=== PATIENT | male | born 1980 | race Caucasian/White ===

== ENCOUNTER 2016-11-25 19:43 | Inpatient (IN) | payer MEDICARE, MEDICAID ==
[2016-11-25 20:29] VITALS: BMI 13.8
[2016-11-25] MEDS ORDERED: Ondansetron ODT 4 MG TAB SL PRN (20:46)
[2016-11-25] MEDS ORDERED: Acetaminophen 325 MG TAB PO PRN ×2 (20:46→22:12)
[2016-11-25] MEDS ORDERED: Ondansetron HCl/PF 4 MG/2 ML Vial IVP PRN (20:46)
[2016-11-25] MEDS ORDERED: Meropenem 1 GM in Sodium Chloride 0.9% 100 ML IVPB SCH (22:00)
[2016-11-25] MEDS ORDERED: Ibuprofen 200 MG TAB PO PRN (22:12)
[2016-11-25] MEDS ORDERED: traMADol HCl 50 MG TAB PO PRN (22:12)
[2016-11-25] MEDS ORDERED: Guaifenesin DM 100-10/5 ML UDCUP PO PRN (22:12)
[2016-11-25] MEDS ORDERED: Mag-Al 1200 mg/1200 mg/30 ML UDCUP PO PRN (22:12)
[2016-11-25] MEDS ORDERED: Senokot 8.6 MG TAB PO PRN (22:12)
[2016-11-25] MEDS: HYDROcodone/Acetaminophen 7.5/325 mg Tablet PO PRN (22:41)
[2016-11-25] MEDS ORDERED: VANCOMYCIN IVPB PRN (22:48)
[2016-11-25] MEDS ORDERED: Pregabalin 75 MG CAP PO SCH (23:00)
[2016-11-25] MEDS ORDERED: Famotidine 20 MG TAB PO SCH (23:00)
[2016-11-25] MEDS ORDERED: Oxybutynin Chloride 5 MG TAB PO SCH (23:00)
[2016-11-25 23:44] LABS: Vancomycin, Trough 12.9 ug/mL
[2016-11-26] MEDS: Vancomycin HCl 750 MG in Sodium Chloride 0.9% 250 ML 250 ML IVPB SCH ×3 (04:43→21:23)
[2016-11-26] MEDS: diphenhydrAMINE HCl 25 MG CAP PO PRN ×3 (04:43→21:23)
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
[2016-11-26 05:33] LABS: #Eosinphils 0.2 thou/uL (0.0-0.7); #Lymphocytes 2.6 thou/uL (1.20-3.40); #Monocytes 0.6 thou/uL (0.11-0.59); #Neutrophils 2.4 thou/uL (1.40-6.50); %Basophils 0.2 % (0.0-1.0); %Eosinophils 3.6 % (0.0-10.0); %Lymphocytes 45.2 % (21.0-51.0); %Monocytes 9.9 % (0.0-10.0); Hematocrit 41.7 % (42.0-52.0); Mean Platelet Volume 8.3 fL (7.4-10.4); Red Blood Cell (RBC) Count 4.42 mill/uL (4.70-6.10); White Blood Cell (WBC) Count 5.8 thou/uL (4.8-10.8)
[2016-11-26 05:56] LABS: Anion Gap 13 mmol/L (10-20); BUN (Urea Nitrogen) 16 mg/dL (8.9-20.6); Calc. Creatinine Clearance 115 mL/min (70-130); Calcium 9.4 mg/dL (7.8-10.44); Carbon Dioxide 20 mmol/L (22-29); Chloride 108 mmol/L (98-107); Estimated GFR-MDRD Greater than 90
[2016-11-26] MEDS: Meropenem 1 GM in Sodium Chloride 0.9% 100 ML IVPB SCH ×3 (06:40→21:26)
[2016-11-26] MEDS ORDERED: Milk Of Magnesia 30 ML UDCUP PO PRN (07:14)
[2016-11-26] MEDS ORDERED: Loperamide HCl 2 MG CAP PO PRN (07:14)
[2016-11-26] MEDS ORDERED: Ondansetron HCl/PF 4 MG/2 ML Vial IVP PRN (07:14)
[2016-11-26] MEDS ORDERED: Artificial Tears 18 DROP/0.9 ML EA EYE PRN (07:14)
[2016-11-26] MEDS ORDERED: Diabetic Tussin 200 MG/10 ML UDCUP PO PRN (07:14)
[2016-11-26] MEDS ORDERED: Sodium Chloride 0.65% Nasal 44 ML BOT EA NARE PRN (07:14)
[2016-11-26] MEDS ORDERED: Loratadine 10 MG TAB PO PRN (07:14)
[2016-11-26] MEDS ORDERED: Ondansetron ODT 4 MG TAB PO PRN (07:14)
[2016-11-26] MEDS ORDERED: Eucerin (Mineral Oil/Petrolatum,White) 30 gm Jar TOP PRN (07:14)
[2016-11-26] MEDS ORDERED: Zolpidem Tartrate 5 MG TAB PO PRN (07:14)
[2016-11-26] MEDS: Pregabalin 75 MG CAP PO SCH ×2 (08:59→20:12)
[2016-11-26] MEDS: Famotidine 20 MG TAB PO SCH ×2 (09:00→20:12)
[2016-11-26] MEDS ORDERED: Vancomycin HCl 1 GM in Premix Bag 1 BAG IVPB SCH (09:00)
[2016-11-26] MEDS: HYDROcodone/Acetaminophen 7.5/325 mg Tablet PO PRN ×2 (09:00→18:51)
[2016-11-26] MEDS: Oxybutynin Chloride 5 MG TAB PO SCH ×2 (09:00→20:13)
--- NOTE | 2016-11-26 10:04 | PDOC.PN ---
- Subjective Encounter Start Date: 11/26/16 Encounter Start Time: 08:40 -: old records requested/rev Patient seen and examined. No new complaints. No overnight events - Objective Resuscitation Status: Resuscitation Status FULL:Full Resuscitation MAR Reviewed: Yes Vital Signs & Weight: Vital Signs (12 hours) Temp Pulse Resp BP BP Pulse Ox 11/26/16 08:00 97.5 F L 44 L 18 130/79 97 11/26/16 04:48 97.7 F 49 L 20 105/70 96 11/26/16 00:00 97.8 F 52 L 20 111/71 97 Weight Weight 94 lb 1 oz I&O: 11/25/16 11/26/16 11/27/16 06:59 06:59 06:59 Intake Total 1410 Output Total 450 Balance 960 Result Diagrams: 11/26/16 04:24 11/26/16 04:24 Phys Exam - Physical Examination Constitutional: NAD HEENT: PERRLA, moist MMs, sclera anicteric Neck: no JVD, supple Respiratory: no wheezing, no rales, no rhonchi Cardiovascular: RRR, no significant murmur, no rub Gastrointestinal: soft, non-tender, no distention, positive bowel sounds suprapubic catheter+ Musculoskeletal: no edema, pulses present qudriparesis Psychiatric: normal affect, A&O x 3 Skin: no rash, normal turgor Dx/Plan (1) C5-C7 incomplete quadriplegia Code(s): G82.54 - QUADRIPLEGIA, C5-C7 INCOMPLETE Status: Chronic (2) Decubitus ulcer Code(s): L89.90 - PRESSURE ULCER OF UNSPECIFIED SITE, UNSPECIFIED STAGE Status : Chronic Comment: see wound care team note (3) Neurogenic bladder Code(s): N31.9 - NEUROMUSCULAR DYSFUNCTION OF BLADDER, UNSPECIFIED Status: Chronic (4) Osteomyelitis Code(s): M86.9 - OSTEOMYELITIS, UNSPECIFIED Status: Chronic (5) Protein-calorie malnutrition, severe Code(s): E43 - UNSPECIFIED SEVERE PROTEIN-CALORIE MALNUTRITION Status: Chronic - Plan cont current plan of care, continue antibiotics, social problems specialist * today PICC line * surgery consulted for possible need of debridedment * ID consulted to decide IV antibiotics, currently on meropenam and vancomycin * wound care * nutritional support with ensure and jalil * social work for placement * medication reviewed as below. * symptomatic treatment * selected home meds. Review of Systems - Review of Systems ENT: negative: Ear Pain, Ear Discharge, Nose Pain, Nose Discharge, Nose Congestion, Mouth Pain, Mouth Swelling, Throat Pain, Throat Swelling, Other Respiratory: negative: Cough, Dry, Shortness of Breath, Hemoptysis, SOB with Excertion, Pleuritic Pain, Sputum, Wheezing Cardiovascular: negative: Chest Pain, Palpitations, Orthopnea, Paroxysmal Noc. Dyspnea, Edema, Light Headedness, Other Gastrointestinal: negative: Nausea, Vomiting, Abdominal Pain, Diarrhea, Constipation, Melena, Hematochezia, Other Genitourinary: negative: Dysuria, Frequency, Incontinence, Hematuria, Retention , Other Musculoskeletal: negative: Neck Pain, Shoulder Pain, Arm Pain, Back Pain, Hand Pain, Leg Pain, Foot Pain, Other - Medications/Allergies Allergies/Adverse Reactions: Allergies Allergy/AdvReac Type Severity Reaction Status Date / Time piperacillin sodium Allergy Mild Rash Verified 11/25/16 20:25 [From Zosyn] tazobactam sodium Allergy Mild Rash Verified 11/25/16 20:25 [From Zosyn] iodine Allergy Verified 11/25/16 20:25 ketorolac tromethamine Allergy Verified 11/25/16 20:25 [From Toradol] meperidine HCl [From Demerol] Allergy Verified 11/25/16 20:25 morphine Allergy Verified 11/25/16 20:25 vancomycin Allergy Verified 11/25/16 20:25 Medications: Current Medications Acetaminophen (Tylenol) 650 mg PO Q4H PRN PRN Reason: Headache/Fever or Pain Hydrocodone Bitart/Acetaminophen ([place] 7.5/325) 1 tab PO Q6H PRN PRN Reason: Moderate Pain (4-6) Last Admin: 11/26/16 09:00 Dose: 1 tab Al Hydroxide/Mg Hydroxide (Maalox) 30 ml PO Q6H PRN PRN Reason: Heartburn or Indigestion Artificial Tears (Tears Naturale) 0 drop EA EYE PRN PRN PRN Reason: Dry Eyes Baclofen (Lioresal) 10 mg PO QID ARBEN Diphenhydramine HCl (Benadryl) 25 mg PO Q6H PRN PRN Reason: Itching & Insomnia Last Admin: 11/26/16 04:43 Dose: 25 mg Enoxaparin Sodium (Lovenox) 30 mg SC 0900 [facility] Famotidine (Pepcid) 20 mg PO BID [facility] Last Admin: 11/26/16 09:00 Dose: 20 mg Guaifenesin (Robitussin Sf) 200 mg PO Q4H PRN PRN Reason: Cough Guaifenesin/Dextromethorphan (Robitussin Dm) 15 ml PO Q4H PRN PRN Reason: Cough Hydralazine HCl (Apresoline) 10 mg SLOW IVP Q4H PRN PRN Reason: Systolic BP > 180 Meropenem 1 gm/ Sodium (Chloride) 100 mls @ 200 mls/hr IVPB Q8HR [facility] Last Admin: 11/26/16 06:40 Dose: 100 mls Vancomycin HCl 750 mg/ Sodium (Chloride) 250 mls @ 166.667 mls/hr IVPB 0500, 1300,2100 [facility] Last Admin: 11/26/16 04:43 Dose: 250 mls Ibuprofen (Motrin) 400 mg PO Q6H PRN PRN Reason: Pain Loperamide HCl (Imodium) 2 mg PO PRN PRN PRN Reason: Diarrhea/Loose Stools Loratadine (Claritin) 10 mg PO DAILYPRN PRN PRN Reason: Sinus Symptoms Magnesium Hydroxide (Milk Of Magnesium) 30 ml PO DAILYPRN PRN PRN Reason: Constipation Mineral Oil/White Petrolatum (Eucerin Cream) 0 gm TOP BIDPRN PRN PRN Reason: Dry Skin Miscellaneous Medication (Pharmacy To Dose) 1 each IVPB PRN PRN PRN Reason: OSTEO Ondansetron HCl (Zofran Odt) 4 mg PO Q6H PRN PRN Reason: Nausea/Vomiting Ondansetron HCl (Zofran) 4 mg IVP Q6H PRN PRN Reason: Nausea/Vomiting Oxybutynin Chloride (Ditropan) 5 mg PO BID [facility] Last Admin: 11/26/16 09:00 Dose: 5 mg (Arginine/Glutamine/Calcium Hmb [Jalil Packet] 1 Each) 1 each PO TID [facility] Pregabalin (Lyrica) 75 mg PO BID [facility] Last Admin: 11/26/16 08:59 Dose: 75 mg Senna (Senokot) 2 tab PO HSPRN PRN PRN Reason: Constipation Sodium Chloride ([place] Nasal [place] 0.65%) 0 ml EA NARE QIDPRN PRN PRN Reason: Nasal Congestion Sodium Chloride (Flush - Normal Saline) 10 ml IVF Q12HR [facility] Last Admin: 11/26/16 08:10 Dose: 10 ml Sodium Chloride (Flush - Normal Saline) 10 ml IVF PRN PRN PRN Reason: Saline Flush Tramadol HCl (Ultram) 50 mg PO Q6H PRN PRN Reason: Pain Zolpidem Tartrate (Ambien) 5 mg PO HSPRN PRN PRN Reason: Insomnia
[2016-11-26] MEDS: Baclofen 10 MG TAB PO SCH ×3 (12:47→20:13)
[2016-11-26] MEDS: Enoxaparin Sodium 30 MG/0.3 ML SYRINGE SC SCH (12:47)
--- NOTE | 2016-11-26 14:14 | SPC ---
ULTRASOUND GUIDED LEFT UPPER EXTREMITY PICC LINE PLACEMENT: Date: 11-26-16 History: Osteomyelitis. Patient needs long-term IV antibiotics. Fluoroscopy: Total time is 0.3 minutes. Total dose of 248 mGy*cm\S\2. Technique: Informed consent was obtained. Patient was placed on the angiography table in supine position. Left upper extremity was meticulously prepped and draped in the usual sterile fashion. An appropriate acc ess site was determined with ultrasound guidance. Skin subcutaneous tissues were infiltrated with buffered 1% Lidocaine for local anesthesia at the in tended puncture site. Utilizing concurrent real-time ultrasound guidance, the left brachial vein was accessed utilizing micropuncture technique, and a 5 Polish peel-away sheath was placed. Catheter was measured and cut to the appropriate length. Catheter was placed over the guidewire with tip overlying the cavoatrial junction. Guidewire and peel-away sheath were removed. Catheter was ac cessed and aspirated/flushed easily. The catheter was secured to the skin and a christian sterile dressing was placed. Patient tolerated the p rocedure well without immediate complication. FINDINGS: Technically successful placement of a single lumen 5 Polish 39 cm PICC line via the left brachial ve in. Tip of the catheter overlies the cavoatrial junction. IMPRESSION: Technically successful left upper extremity PICC line placement. POS: [facility]
[2016-11-26] MEDS ORDERED: Heparin 1,000 UNITS/ML VIAL ONE (15:17)
--- NOTE | 2016-11-26 15:22 | MRI ---
MRI OF THE PELVIS WITHOUT CONTRAST: INDICATION: Rule out osteomyelitis. COMPARISON: Prior MR of the pelvis with and without contrast dated 10/23/16. FINDINGS: The abnormal signal intensity underlying the ischial decubiti is similar appearing. Osteomyelitis i nvolving the inferior aspect of the left ischial tuberosity is similar-appearing. There is myositis involving the right obturator externis which is similar. There is postsurgical change of girdlesto ne arthroplasties bilaterally that are similar. There is a large left-sided hydrocele that is simil ar. There is a suprapubic catheter that projects within a decompressed bladder. No definite draina ble fluid collection is evident. IMPRESSION: 1. Persistent changes of osteomyelitis underlying stage IV decubitus ulcers overlying the ischial t uberosities. 2. Myositis involving the right obturator externis is stable. 3. Suprapubic catheter as above. POS: [facility]
--- NOTE | 2016-11-26 15:46 | CON ---
DATE OF CONSULTATION: 11/26/2016 This is a short followup note from clinic visit. HISTORY OF PRESENT ILLNESS: A 36-year-old recently seen at the clinic for evaluation of decubitus u lcer. He had an MRI, which demonstrated findings consistent with osteomyelitis and this is localize d to the hip resection site. The patient is here to get a PICC line and be transferred to [place] on IV antimicrobials. He appears in no distress, no cough, chest pain, abdominal pain or diarrhea a nd has an indwelling catheter and the patient has this area of shallow ulcerations in the lateral as pect of the right foot and digits and an area of ulceration in the right ischial region with round-s haped measuring about 3 cm with some erythema surrounding it. For the most part, there is a red tis nadiya covering it and there is one anterior area which measures about half a centimeter with dark tiss ue. The nurse was able to probe, but not to bone. PHYSICAL EXAMINATION: GENERAL: Awake, alert, oriented. LUNGS: Clear. HEART: S1, S2, regular rate. ABDOMEN: Soft. EXTREMITIES: Paraplegia. LABORATORY DATA: White cell count 5.8, hemoglobin 13, platelets 221 with 41% neutrophils. Sodium 1 36, creatinine 0.53. Previous microbiology with MRSA, Enterococcus, P. aeruginosa and anaerobes. ASSESSMENT AND DISCUSSION: Incomplete quadriplegia from cervical spine injury and chronic refractor y decubitus ulcers, status post recent right hip resection, now with an ulcerated site with worsenin g of the MRI findings suggestive of osteomyelitis at the remnant from the hip resection. The patien t will be transferred to [place] on IV meropenem 1 g q.8 and vancomycin 1.25 grams q.12 hours. Diana olivas labs and wound care.
[2016-11-27] MEDS: Vancomycin HCl 750 MG in Sodium Chloride 0.9% 250 ML 250 ML IVPB SCH ×3 (04:21→20:57)
[2016-11-27] MEDS: diphenhydrAMINE HCl 25 MG CAP PO PRN (04:23)
[2016-11-27] MEDS: HYDROcodone/Acetaminophen 7.5/325 mg Tablet PO PRN ×2 (04:39→20:32)
[2016-11-27] MEDS: Meropenem 1 GM in Sodium Chloride 0.9% 100 ML IVPB SCH ×3 (04:47→23:15)
[2016-11-27] MEDS: Pregabalin 75 MG CAP PO SCH ×2 (08:41→20:31)
[2016-11-27] MEDS: Oxybutynin Chloride 5 MG TAB PO SCH ×2 (08:41→20:32)
[2016-11-27] MEDS: Famotidine 20 MG TAB PO SCH ×2 (08:41→20:31)
[2016-11-27] MEDS: Baclofen 10 MG TAB PO SCH ×4 (08:41→20:31)
[2016-11-27] MEDS: Enoxaparin Sodium 30 MG/0.3 ML SYRINGE SC SCH (08:43)
--- NOTE | 2016-11-27 10:33 | PDOC.PN ---
- Subjective Encounter Start Date: 11/27/16 Encounter Start Time: 09:45 Patient seen and examined. No new complaints. No overnight events - Objective Resuscitation Status: Resuscitation Status FULL:Full Resuscitation MAR Reviewed: Yes Vital Signs & Weight: Vital Signs (12 hours) Temp Pulse Resp BP Pulse Ox 11/27/16 07:23 97.7 F 54 L 16 162/91 H 96 11/27/16 00:00 97.7 F 56 L 20 126/82 96 Weight Admit Weight 94 lb Weight 94 lb I&O: 11/26/16 11/27/16 11/28/16 06:59 06:59 06:59 Intake Total 1410 2710 Output Total 450 2200 Balance 960 510 Result Diagrams: 11/26/16 04:24 11/26/16 04:24 Radiology Reviewed by me: Yes (pelvic MRI) Phys Exam - Physical Examination Constitutional: NAD HEENT: PERRLA, moist MMs, sclera anicteric Neck: no JVD, supple Respiratory: no wheezing, no rales, no rhonchi Cardiovascular: RRR, no significant murmur, no rub Gastrointestinal: soft, non-tender, no distention, positive bowel sounds suprapubic cathteter Musculoskeletal: no edema, pulses present quadripelgia incomplete Psychiatric: normal affect, A&O x 3 Skin: normal turgor Deviation from normal: for wound see WCT note Dx/Plan (1) C5-C7 incomplete quadriplegia Code(s): G82.54 - QUADRIPLEGIA, C5-C7 INCOMPLETE Status: Chronic (2) Decubitus ulcer Code(s): L89.90 - PRESSURE ULCER OF UNSPECIFIED SITE, UNSPECIFIED STAGE Status : Chronic Comment: see wound care team note (3) Neurogenic bladder Code(s): N31.9 - NEUROMUSCULAR DYSFUNCTION OF BLADDER, UNSPECIFIED Status: Chronic (4) Osteomyelitis Code(s): M86.9 - OSTEOMYELITIS, UNSPECIFIED Status: Chronic (5) Protein-calorie malnutrition, severe Code(s): E43 - UNSPECIFIED SEVERE PROTEIN-CALORIE MALNUTRITION Status: Chronic - Plan cont current plan of care, continue antibiotics, social director * continue meropenam and vancomycin * pt is tolerating current IV antibiotics without side effect * medication reviewed as below * symptomatic treatment * medically stable with current treatment * tomorrow plan for discharge to swing bed. Review of Systems - Review of Systems Eyes: negative: Pain, Vision Change, Conjunctivae Inflammation, Eyelid Inflammation, Redness, Other ENT: negative: Ear Pain, Ear Discharge, Nose Pain, Nose Discharge, Nose Congestion, Mouth Pain, Mouth Swelling, Throat Pain, Throat Swelling, Other Respiratory: negative: Cough, Dry, Shortness of Breath, Hemoptysis, SOB with Excertion, Pleuritic Pain, Sputum, Wheezing Cardiovascular: negative: Chest Pain, Palpitations, Orthopnea, Paroxysmal Noc. Dyspnea, Edema, Light Headedness, Other Gastrointestinal: negative: Nausea, Vomiting, Abdominal Pain, Diarrhea, Constipation, Melena, Hematochezia, Other Genitourinary: negative: Dysuria, Frequency, Incontinence, Hematuria, Retention , Other Musculoskeletal: negative: Neck Pain, Shoulder Pain, Arm Pain, Back Pain, Hand Pain, Leg Pain, Foot Pain, Other - Medications/Allergies Allergies/Adverse Reactions: Allergies Allergy/AdvReac Type Severity Reaction Status Date / Time piperacillin sodium Allergy Mild Rash Verified 11/25/16 20:25 [From Zosyn] tazobactam sodium Allergy Mild Rash Verified 11/25/16 20:25 [From Zosyn] iodine Allergy Verified 11/25/16 20:25 ketorolac tromethamine Allergy Verified 11/25/16 20:25 [From Toradol] meperidine HCl [From Demerol] Allergy Verified 11/25/16 20:25 morphine Allergy Verified 11/25/16 20:25 vancomycin Allergy Verified 11/25/16 20:25 Medications: Current Medications Acetaminophen (Tylenol) 650 mg PO Q4H PRN PRN Reason: Headache/Fever or Pain Hydrocodone Bitart/Acetaminophen ([place] 7.5/325) 1 tab PO Q6H PRN PRN Reason: Moderate Pain (4-6) Last Admin: 11/27/16 04:39 Dose: 1 tab Al Hydroxide/Mg Hydroxide (Maalox) 30 ml PO Q6H PRN PRN Reason: Heartburn or Indigestion Artificial Tears (Tears Naturale) 0 drop EA EYE PRN PRN PRN Reason: Dry Eyes Baclofen (Lioresal) 10 mg PO QID ARBEN Last Admin: 11/27/16 08:41 Dose: 10 mg Diphenhydramine HCl (Benadryl) 25 mg PO Q6H PRN PRN Reason: Itching & Insomnia Last Admin: 11/27/16 04:23 Dose: 25 mg Enoxaparin Sodium (Lovenox) 30 mg SC 0900 [facility] Last Admin: 11/27/16 08:43 Dose: Not Given Famotidine (Pepcid) 20 mg PO BID [facility] Last Admin: 11/27/16 08:41 Dose: 20 mg Guaifenesin (Robitussin Sf) 200 mg PO Q4H PRN PRN Reason: Cough Guaifenesin/Dextromethorphan (Robitussin Dm) 15 ml PO Q4H PRN PRN Reason: Cough Hydralazine HCl (Apresoline) 10 mg SLOW IVP Q4H PRN PRN Reason: Systolic BP > 180 Meropenem 1 gm/ Sodium (Chloride) 100 mls @ 200 mls/hr IVPB Q8HR [facility] Last Admin: 11/27/16 04:47 Dose: 100 mls Vancomycin HCl 750 mg/ Sodium (Chloride) 250 mls @ 166.667 mls/hr IVPB 0500, 1300,2100 [facility] Last Admin: 11/27/16 04:21 Dose: 250 mls Ibuprofen (Motrin) 400 mg PO Q6H PRN PRN Reason: Pain Loperamide HCl (Imodium) 2 mg PO PRN PRN PRN Reason: Diarrhea/Loose Stools Loratadine (Claritin) 10 mg PO DAILYPRN PRN PRN Reason: Sinus Symptoms Magnesium Hydroxide (Milk Of Magnesium) 30 ml PO DAILYPRN PRN PRN Reason: Constipation Mineral Oil/White Petrolatum (Eucerin Cream) 0 gm TOP BIDPRN PRN PRN Reason: Dry Skin Miscellaneous Medication (Pharmacy To Dose) 1 each IVPB PRN PRN PRN Reason: OSTEO Ondansetron HCl (Zofran Odt) 4 mg PO Q6H PRN PRN Reason: Nausea/Vomiting Ondansetron HCl (Zofran) 4 mg IVP Q6H PRN PRN Reason: Nausea/Vomiting Oxybutynin Chloride (Ditropan) 5 mg PO BID [facility] Last Admin: 11/27/16 08:41 Dose: 5 mg Pregabalin (Lyrica) 75 mg PO BID [facility] Last Admin: 11/27/16 08:41 Dose: 75 mg Senna (Senokot) 2 tab PO HSPRN PRN PRN Reason: Constipation Sodium Chloride ([place] Nasal [place] 0.65%) 0 ml EA NARE QIDPRN PRN PRN Reason: Nasal Congestion Sodium Chloride (Flush - Normal Saline) 10 ml IVF Q12HR [facility] Last Admin: 11/27/16 08:42 Dose: 10 ml Sodium Chloride (Flush - Normal Saline) 10 ml IVF PRN PRN PRN Reason: Saline Flush Last Admin: 11/26/16 15:10 Dose: 10 ml Tramadol HCl (Ultram) 50 mg PO Q6H PRN PRN Reason: Pain Zolpidem Tartrate (Ambien) 5 mg PO HSPRN PRN PRN Reason: Insomnia
[2016-11-27] MEDS: GLUTAMINE PO SCH (10:54)
[2016-11-27] MEDS: CALCIUM HMB PO SCH (10:54)
[2016-11-27] MEDS: ARGININE PO SCH (10:54)
[2016-11-27 20:39] LABS: Vancomycin, Trough 17.6 ug/mL
[2016-11-28] MEDS: Vancomycin HCl 750 MG in Sodium Chloride 0.9% 250 ML 250 ML IVPB SCH ×2 (05:00→12:27)
[2016-11-28] MEDS: Meropenem 1 GM in Sodium Chloride 0.9% 100 ML IVPB SCH (07:25)
[2016-11-28] MEDS: Oxybutynin Chloride 5 MG TAB PO SCH (08:30)
[2016-11-28] MEDS: Famotidine 20 MG TAB PO SCH (08:31)
[2016-11-28] MEDS: Enoxaparin Sodium 30 MG/0.3 ML SYRINGE SC SCH (08:31)
[2016-11-28] MEDS: Baclofen 10 MG TAB PO SCH ×2 (08:31→12:28)
[2016-11-28] MEDS: Pregabalin 75 MG CAP PO SCH (08:31)
[2016-11-28] MEDS: HYDROcodone/Acetaminophen 7.5/325 mg Tablet PO PRN (08:35)
[2016-11-28 11:36] VITALS: BP 142/94
--- NOTE | 2016-11-28 11:36 | DIS ---
DATE OF ADMISSION: 11/25/2016 DATE OF DISCHARGE: 11/28/2016 PRIMARY CARE PHYSICIAN: Dr. Winsome Hudson. DISCHARGE DISPOSITION: Swing bed. PRIMARY DISCHARGE DIAGNOSIS: Osteomyelitis of pelvic bone. SECONDARY DISCHARGE DIAGNOSES: C5-C7 incomplete quadriplegia, decubitus ulcer present on admission, neurogenic bladder with suprapubic catheter, severe protein calorie malnutrition. PRIMARY PROCEDURE/OPERATION: PICC line. RADIOLOGICAL INVESTIGATION: MRI of pelvis showed persistent changes of osteomyelitis underlying sta ge IV decubitus ulcer overlying history of tuberosity, myositis of right obturator externus, suprapu bic catheter in place. SIGNIFICANT LABS: WBC 5.8, hemoglobin 13.6, platelets 221. Sodium 136, potassium 4.6, BUN 16, crea tinine 0.53, calcium 9.4. Blood culture and urine culture negative. Bone culture is negative by th e time of dictation. DISCHARGE MEDICATIONS: Meropenem 1 gram IV q.8 hourly, vancomycin 1.25 grams IV q.12 hourly (durati on of this antibiotic therapy and dose of antibiotic therapy will be adjusted based on vancomycin tr [facility] [place] and Dr. Ayala). The patient will have Jalil supplement t.i.d., baclofen 10 mg p.o. q.i.d ., Shipman 7.5 one tablet q.6 hourly p.r.n., oxybutynin 5 mg p.o. b.i.d., Lyrica 75 mg p.o. b.i.d. CONTRAINDICATIONS: None. CODE STATUS: FULL CODE. INPATIENT CONSULTANTS: Dr. Ayala was following while in hospital. Wound care team was following ile in the hospital. ALLERGIES: The patient is not tolerating ZOSYN, but he is not really allergic to this medication. He is not tolerating TORADOL, but is not really allergic to this medication. CONTRAINDICATIONS: None. CODE STATUS: Full code. DISCHARGE PLAN: Post hospital, the patient will follow up with primary care physician over there at swing bed and Dr. Ayala will periodically follow up with the patient. HOSPITAL COURSE: A 36-year-old male who lives at home with his sister. Patient was having increasi ng purulent drainage from his decubitus ulcer. His decubitus ulcer lately gotten worse. This patie nt has incomplete quadriplegia and mostly his bedbound status. He also has very severe protein-atiya duran malnutrition. Patient initially was taken to [facility] and from there, Dr. Ayala was contacted and h she advised to get PICC line and IV antibiotic therapy. While in hospital, we did a pelvic MRI, which showed persistent finding of osteomyelitis. Patient was receiving meropenem and vancomycin. He wa s not having any side effects especially with vancomycin. Dr. Ayala recommended to continue IV antibiotic therapy for protracted period of time. He will need repeat imaging before stopping antibiotic therapy. This patient will need placement and that is why we consulted casework manager to arrange a swing bed wi th help of casework manager. Today, he has approval for swing bed for IV antibiotic therapy, wound care . The patient is seen and examined at bedside today. PHYSICAL EXAMINATION: VITAL SIGNS: Currently, temperature 97.9, pulse 61, respiratory rate 16, saturation 97%, blood pres sure 141/88. Weight 94 pounds. GENERAL: The patient is currently alert, awake, no acute distress. HEAD: Normocephalic, atraumatic. EYES: Pupils round, reactive to light. Extraocular muscle intact. ENT: Oropharynx within normal limits. Moist mucous membranes. No oral lesions. No pharyngeal alivia thema, no exudates. NECK: Supple, range of motion is normal. LUNGS: Clear. CARDIAC: S1, S2 regular without any murmur. ABDOMEN: Soft with suprapubic catheter in place. SKIN: Please see wound care team. No documentation for decubitus ulcer, description end-stage. NEUROLOGIC: The patient does have an incomplete quadriplegia. Paperwork for discharge done. Discharge medication reconciliation done. Total time spent on discharge today more than 30 minutes.
[2016-11-28 12:39] VITALS: TEMP 97.7
--- NOTE | 2016-11-28 12:49 | PDOC.PN ---
- Subjective Encounter Start Date: 11/28/16 Encounter Start Time: 12:47 Patient seen and examined. No new complaints. No overnight events - Objective Resuscitation Status: Resuscitation Status FULL:Full Resuscitation MAR Reviewed: Yes Vital Signs & Weight: Vital Signs (12 hours) Temp Pulse Resp BP BP Pulse Ox 11/28/16 11:35 97.7 F 70 18 142/94 H 95 11/28/16 08:00 97.9 F 61 16 97 11/28/16 07:56 97.9 F 61 16 173/102 H 97 Weight Admit Weight 94 lb Weight 94 lb I&O: 11/27/16 11/28/16 11/29/16 06:59 06:59 06:59 Intake Total 2710 240 Output Total 2200 750 650 Balance 938 -230 -618 Result Diagrams: 11/26/16 04:24 11/26/16 04:24 Phys Exam - Physical Examination Constitutional: NAD HEENT: PERRLA, moist MMs, sclera anicteric Neck: no JVD, supple Respiratory: no wheezing, no rales, no rhonchi Cardiovascular: RRR, no significant murmur, no rub Gastrointestinal: soft, non-tender, no distention, positive bowel sounds suprapubic catheter Musculoskeletal: no edema, pulses present Lymphatic: no nodes Psychiatric: normal affect Skin: no rash, normal turgor Dx/Plan (1) C5-C7 incomplete quadriplegia Code(s): G82.54 - QUADRIPLEGIA, C5-C7 INCOMPLETE Status: Chronic (2) Decubitus ulcer Code(s): L89.90 - PRESSURE ULCER OF UNSPECIFIED SITE, UNSPECIFIED STAGE Status : Chronic Comment: see wound care team note (3) Neurogenic bladder Code(s): N31.9 - NEUROMUSCULAR DYSFUNCTION OF BLADDER, UNSPECIFIED Status: Chronic (4) Osteomyelitis Code(s): M86.9 - OSTEOMYELITIS, UNSPECIFIED Status: Chronic (5) Protein-calorie malnutrition, severe Code(s): E43 - UNSPECIFIED SEVERE PROTEIN-CALORIE MALNUTRITION Status: Chronic - Plan cont current plan of care, vargas catheter, continue antibiotics, PT/OT, social insurance adviser * medication reviewed as below * medically stable with current treatment * symptomatic treatment * see discharge summery. Review of Systems - Review of Systems ENT: negative: Ear Pain, Ear Discharge, Nose Pain, Nose Discharge, Nose Congestion, Mouth Pain, Mouth Swelling, Throat Pain, Throat Swelling, Other Respiratory: negative: Cough, Dry, Shortness of Breath, Hemoptysis, SOB with Excertion, Pleuritic Pain, Sputum, Wheezing Cardiovascular: negative: Chest Pain, Palpitations, Orthopnea, Paroxysmal Noc. Dyspnea, Edema, Light Headedness, Other Gastrointestinal: negative: Nausea, Vomiting, Abdominal Pain, Diarrhea, Constipation, Melena, Hematochezia, Other Genitourinary: negative: Dysuria, Frequency, Incontinence, Hematuria, Retention , Other Musculoskeletal: negative: Neck Pain, Shoulder Pain, Arm Pain, Back Pain, Hand Pain, Leg Pain, Foot Pain, Other - Medications/Allergies Allergies/Adverse Reactions: Allergies Allergy/AdvReac Type Severity Reaction Status Date / Time piperacillin sodium Allergy Mild Rash Verified 11/25/16 20:25 [From Zosyn] tazobactam sodium Allergy Mild Rash Verified 11/25/16 20:25 [From Zosyn] iodine Allergy Verified 11/25/16 20:25 ketorolac tromethamine Allergy Verified 11/25/16 20:25 [From Toradol] meperidine HCl [From Demerol] Allergy Verified 11/25/16 20:25 morphine Allergy Verified 11/25/16 20:25 vancomycin Allergy Verified 11/25/16 20:25 Medications: Current Medications Acetaminophen (Tylenol) 650 mg PO Q4H PRN PRN Reason: Headache/Fever or Pain Last Admin: 11/27/16 11:21 Dose: 650 mg Hydrocodone Bitart/Acetaminophen ([facility] 7.5/325) 1 tab PO Q6H PRN PRN Reason: Moderate Pain (4-6) Last Admin: 11/28/16 08:35 Dose: 1 tab Al Hydroxide/Mg Hydroxide (Maalox) 30 ml PO Q6H PRN PRN Reason: Heartburn or Indigestion Artificial Tears (Tears Naturale) 0 drop EA EYE PRN PRN PRN Reason: Dry Eyes Baclofen (Lioresal) 10 mg PO QID [facility] Last Admin: 11/28/16 12:28 Dose: 10 mg Diphenhydramine HCl (Benadryl) 25 mg PO Q6H PRN PRN Reason: Itching & Insomnia Last Admin: 11/27/16 04:23 Dose: 25 mg Enoxaparin Sodium (Lovenox) 30 mg SC 0900 [facility] Last Admin: 11/28/16 08:31 Dose: Not Given Famotidine (Pepcid) 20 mg PO BID [facility] Last Admin: 11/28/16 08:31 Dose: 20 mg Guaifenesin (Robitussin Sf) 200 mg PO Q4H PRN PRN Reason: Cough Guaifenesin/Dextromethorphan (Robitussin Dm) 15 ml PO Q4H PRN PRN Reason: Cough Hydralazine HCl (Apresoline) 10 mg SLOW IVP Q4H PRN PRN Reason: Systolic BP > 180 Meropenem 1 gm/ Sodium (Chloride) 100 mls @ 200 mls/hr IVPB Q8HR [facility] Last Admin: 11/28/16 07:25 Dose: 100 mls Vancomycin HCl 750 mg/ Sodium (Chloride) 250 mls @ 166.667 mls/hr IVPB 0500, 1300,2100 [facility] Last Admin: 11/28/16 12:27 Dose: 250 mls Ibuprofen (Motrin) 400 mg PO Q6H PRN PRN Reason: Pain Loperamide HCl (Imodium) 2 mg PO PRN PRN PRN Reason: Diarrhea/Loose Stools Loratadine (Claritin) 10 mg PO DAILYPRN PRN PRN Reason: Sinus Symptoms Magnesium Hydroxide (Milk Of Magnesium) 30 ml PO DAILYPRN PRN PRN Reason: Constipation Mineral Oil/White Petrolatum (Eucerin Cream) 0 gm TOP BIDPRN PRN PRN Reason: Dry Skin Miscellaneous Medication (Pharmacy To Dose) 1 each IVPB PRN PRN PRN Reason: OSTEO Ondansetron HCl (Zofran Odt) 4 mg PO Q6H PRN PRN Reason: Nausea/Vomiting Ondansetron HCl (Zofran) 4 mg IVP Q6H PRN PRN Reason: Nausea/Vomiting Oxybutynin Chloride (Ditropan) 5 mg PO BID [facility] Last Admin: 11/28/16 08:30 Dose: 5 mg Pregabalin (Lyrica) 75 mg PO BID [facility] Last Admin: 11/28/16 08:31 Dose: 75 mg Senna (Senokot) 2 tab PO HSPRN PRN PRN Reason: Constipation Sodium Chloride ([place] Nasal [place] 0.65%) 0 ml EA NARE QIDPRN PRN PRN Reason: Nasal Congestion Sodium Chloride (Flush - Normal Saline) 10 ml IVF Q12HR [facility] Last Admin: 11/28/16 08:32 Dose: 10 ml Sodium Chloride (Flush - Normal Saline) 10 ml IVF PRN PRN PRN Reason: Saline Flush Last Admin: 11/26/16 15:10 Dose: 10 ml Tramadol HCl (Ultram) 50 mg PO Q6H PRN PRN Reason: Pain Zolpidem Tartrate (Ambien) 5 mg PO HSPRN PRN PRN Reason: Insomnia
== END 2016-11-28 13:05 | disposition swing bed (61) | DRG 539 ==
LOC: T4-A 19:57
PROVIDERS: ADMIT Internal Medicine; ATTEND Internal Medicine
PROC: 02HV33Z Insertion of Infusion Device into Superior Vena Cava, Percutaneous Approach (ICD-10-PCS; principal; 2016-11-26)
PROC: B548ZZA Ultrasonography of Superior Vena Cava, Guidance (ICD-10-PCS; 2016-11-26)
DX: M86.68 Other chronic osteomyelitis, other site (principal); E43 Unspecified severe protein-calorie malnutrition; G82.54 Quadriplegia, C5-C7 incomplete; L89.154 Pressure ulcer of sacral region, stage 4; R64 Cachexia; G82.21 Paraplegia, complete; Z68.1 Body mass index [BMI] 19.9 or less, adult; L97.419 Non-pressure chronic ulcer of right heel and midfoot with unspecified severity; V89.2XXS Person injured in unspecified motor-vehicle accident, traffic, sequela; N31.9 Neuromuscular dysfunction of bladder, unspecified; Z93.51 Cutaneous-vesicostomy status; Z74.01 Bed confinement status; S19.9XXS Unspecified injury of neck, sequela; Z86.718 Personal history of other venous thrombosis and embolism
CPT/HCPCS: 36415; 36569; 72195; 80048; 80202; 85025; 87040; 87070; 87077; 87086; 87186; 87205; A4216; C1751; G8981-GP-CK; G8982-GP-CK; G8983-GP-CK; J1644; J1650; J2185; J3370; J7050

== ENCOUNTER 2017-01-09 09:53 | Outpatient (CLI) | payer MEDICARE, MEDICAID ==
--- NOTE | 2017-01-09 12:42 | PRG ---
DATE OF SERVICE: 01/09/2017 HISTORY: Mr. Preston Malcolm is a very pleasant 36-year-old gentleman, who presents to the Wound Center for evaluation of right and left ischial decubitus ulcerations. Since the patient was last seen in the Wound Center, Mr. Malcolm was admitted to [facility] on 11/25/2016 for treatment of osteomyelitis of the pelvis. The patient states that he has completed his course of IV antibiotics. PHYSICAL EXAMINATION: VITAL SIGNS: Temperature 97.8, pulse 75, respirations 18, blood pressure 93/56. EXTREMITIES: An ulceration is present over the right ischium, which measures approximately 1.5 x 1.7 cm. The wound is granulating. Nonviable tissue present within the wound margins was debrided with an excisional full-thickness debridement. No purulent drainage is associated with the wound. No erythema of the skin surrounding the wound is present. No maceration of the skin of the periwound is noted. The ulceration over the left ischium has healed completely. ASSESSMENT AND PLAN: 1. Right and left ischial decubitus ulcerations. As stated above, the ulceration over the left ischium has healed completely. For the right ischial decubitus ulceration, dressing changes of Promogran and Mepilex border will be continued 3 times per week after cleansing and irrigation with the assistance of Home Health. Hydrofera Blue may also be utilized in lieu of Promogran. 2. Incomplete paraplegia secondary to C5 fracture in 2000. 3. Neurogenic bladder. 4. Seizures. 5. Labile hypertension. 6. Nephrolithiasis. 7. Deep venous thrombosis in 2000 with inferior vena cava filter placement. 8. Peptic ulcer disease. [facility]
== END 2017-01-09 09:54 | disposition home or self-care (01) ==
LOC: WCC 09:53
PROVIDERS: ATTEND Family Medicine
DX: L89.319 Pressure ulcer of right buttock, unspecified stage (principal); N31.9 Neuromuscular dysfunction of bladder, unspecified; K27.9 Peptic ulcer, site unspecified, unspecified as acute or chronic, without hemorrhage or perforation; N20.0 Calculus of kidney; R56.9 Unspecified convulsions; I10 Essential (primary) hypertension; Z86.718 Personal history of other venous thrombosis and embolism
CPT/HCPCS: 11042

== ENCOUNTER 2017-03-17 09:13 | Outpatient (CLI) | payer MEDICARE, MEDICAID ==
--- NOTE | 2017-03-17 11:08 | PRG ---
DATE OF SERVICE: 03/17/2017 HISTORY: Mr. Preston Malcolm is a very pleasant 37-year-old gentleman who presents to the [facility] for evaluation of right and left ischial decubitus ulcerations. Since the patient's last visit, Mr Jameel Malcolm states he has been receiving dressing changes of Promogran for his pressure ulcerations. The patient has no complaints today. He denies any fever or chills. He states that over the holiday [facility] the offloading of his pressure ulcerations was less than optimal. PHYSICAL EXAMINATION: VITAL SIGNS: Temperature 97.3, pulse 57, respirations 17, blood pressure 102/62. EXTREMITIES: Two pressure ulcerations are present over the right ischium, which measure approximatel y 2.0 x 3.0 cm and 1.4 cm x 0.8 cm. Both wounds are granulating. Nonviable tissue present within th e wound margins of each wound was debrided with an excisional full-thickness debridement. No purulen t drainage is associated with either wound. No erythema of the skin surrounding either wound is pres ent. No maceration of the skin of the periwound of either wound is noted. No ulcerations are presen t over the left ischium. ASSESSMENT AND PLAN: 1. Right and left ischial decubitus ulcerations. As stated above, the ulceration over the left isch ium has healed completely and remains healed. For the right ischial decubitus ulcerations, dressing changes of Promogran and Mepilex border will be continued 3 times per week after cleansing and irriga tion with the assistance of Home Health. Hydrofera Blue may also be utilized in lieu of Promogran. 2. Incomplete paraplegia secondary to C5 fracture in 2000. 3. Neurogenic bladder. 4. Seizures. 5. Labile hypertension. 6. Nephrolithiasis. 7. Deep venous thrombosis in 2000 with inferior vena cava filter placement. 8. Peptic ulcer disease.
[2017-03-17] MEDS ORDERED: Sodium Chloride 0.9% 15 ML NEB ONE (17:17)
== END 2017-03-17 09:14 | disposition home or self-care (01) ==
LOC: WCC 09:13
PROVIDERS: ATTEND Family Medicine
DX: L89.319 Pressure ulcer of right buttock, unspecified stage (principal); G82.22 Paraplegia, incomplete; R56.9 Unspecified convulsions; N31.9 Neuromuscular dysfunction of bladder, unspecified
CPT/HCPCS: 11042; A4218

== ENCOUNTER 2017-06-05 08:11 | Outpatient (CLI) | payer MEDICARE, MEDICAID ==
[2017-06-05] MEDS ORDERED: Sodium Chloride 0.9% 15 ML NEB ONE (09:00)
--- NOTE | 2017-06-05 09:51 | PRG ---
DATE OF SERVICE: 06/05/2017 HISTORY: Mr. Preston Malcolm is a very pleasant 37-year-old gentleman who presents to the Wound Center for evaluation of right and left ischial decubitus ulcerations. The patient continues to receive dressing changes with the assistance of Home Health. Mr. Malcolm states that he was using a wheelchair which provided less than optimal offloading for his decubitus ulcerations. He states that he has, however, now received the wheelchair he was previously using. The patient denies any fever or chills. He states he is worried about the possibility of an infectious process associated with his wounds. PHYSICAL EXAMINATION: VITAL SIGNS: Temperature 97.9, pulse 64, respirations 18, blood pressure 99/58. EXTREMITIES: Two pressure ulcerations are present over the right ischium, which measure approximately 2.7 x 2.0 cm and 1.2 x 1.2 cm. An ulceration is present over the left ischium, which measures approximately 0.2 x 1.3 cm. The ulcerations over the right ischium are granulating. Nonviable tissue present within the margins of each wound was debrided with an excisional full-thickness debridement. No purulent drainage is associated with either wound. No erythema of the skin surrounding either wound is present. No maceration of the skin of the periwound of either wound is noted. The ulceration over the left ischium appears to be healing without complications or any signs of infection. ASSESSMENT AND PLAN: 1. Right and left ischial decubitus ulcerations. For the ulcerations, dressing changes of Promogran and Mepilex border will be continued 3 times per week after cleansing and irrigation with the assistance of Home Health. Hydrofera Blue may also be utilized in lieu of Promogran. 2. Incomplete paraplegia secondary to C5 fracture in 2000. 3. Neurogenic bladder. 4. Seizures. 5. Labile hypertension. 6. Nephrolithiasis. 7. Deep venous thrombosis in 2000 with inferior vena cava filter placement. 8. Peptic ulcer disease. [facility]
== END 2017-06-05 08:12 | disposition home or self-care (01) ==
LOC: WCC 08:11
PROVIDERS: ATTEND Family Medicine
DX: L89.229 Pressure ulcer of left hip, unspecified stage (principal); L89.219 Pressure ulcer of right hip, unspecified stage; G82.22 Paraplegia, incomplete; S12.400S Unspecified displaced fracture of fifth cervical vertebra, sequela; N31.9 Neuromuscular dysfunction of bladder, unspecified; R56.9 Unspecified convulsions; I10 Essential (primary) hypertension; N20.0 Calculus of kidney; Z86.718 Personal history of other venous thrombosis and embolism; K27.9 Peptic ulcer, site unspecified, unspecified as acute or chronic, without hemorrhage or perforation
CPT/HCPCS: 11042; A4218

== ENCOUNTER 2017-06-10 10:22 | Outpatient (CLI) | payer MEDICARE, MEDICAID ==
--- NOTE | 2017-06-10 12:01 | CT ---
CT OF ABDOMEN AND PELVIS PERFORMED WITHOUT CONTRAST ENHANCEMENT: History: Renal calculi. Comparison: 03-15-15 FINDINGS: There is linear changes in both lung bases, actually slightly less pronounced than on the prior exami [facility], most compatible with some scarring. The liver and spleen show no focal abnormalities. The spleen is 12.6 cm in length. The pancreas regio n is unremarkable. The gallbladder appears to have been removed. There are post-operative changes which appear to be related to some type of gastric bypass procedure. There are also anastomotic sutures associated with some of the bowel in the right mid abdomen with s ome chronic dilatation in the bowel loops, similar to the previous study. Right and left adrenal glands are normal in appearance. Hypodensities involving both kidneys are most likely cysts. There has been in an increase in the stone burden of the left kidney. The left renal p kim calculus has increased in size from an approximately 7 x 18 mm stone to an 11 x 33 mm calculus and there has been development of a 7-8 mm calculus in the lower pole of the left kidney. Punctate ri ght renal calculi are again seen which appear fairly similar to the prior examination. There appear t o be a few tiny additional calculi in the lower pole region. There is slight dilatation to the left u reter but I see no calculus. There are bladder calculi seen and a suprapubic catheter is present. There is a left sided IVC and a IVC filter extending into the left renal vein region. A left sided colostomy is present. CT OF PELVIS PERFORMED WITH CONTRAST ENHANCEMENT: Bilateral chronic hip dislocations are seen. Soft tissue changes are probably related to chronic appe aring decubitus type ulcers. Increased sclerosis involving the posterior right acetabulum is compared to the prior examination. This could represent chronic indolent osteomyelitis. IMPRESSION: 1. Interval increase in the stone burden, specifically the left renal pelvis calculus has definitely increased in size and there is now a large 7-8 mm lower pole left renal calculus. 2. Post-operative changes of the abdomen appear to be related to some type of previous gastric bypass procedure. Chronic appearing dilatation of some of the small bowel in the right mid abdomen is again noted. 3. Post op cholecystectomy change. 4. Bladder calculi with a suprapubic catheter in place. 5. Chronic appearing decubitus ulcers of bony sclerosis of the posterior margin of the right acetabul um could indicate a chronic osteomyelitis. 4. Borderline spleen size. Other findings as noted above. POS: [facility]
== END 2017-06-10 10:23 | disposition home or self-care (01) ==
LOC: CT 10:22
PROVIDERS: ATTEND Urology
DX: Z43.5 Encounter for attention to cystostomy (principal); N20.0 Calculus of kidney; N21.0 Calculus in bladder; N31.9 Neuromuscular dysfunction of bladder, unspecified; G82.54 Quadriplegia, C5-C7 incomplete; N35.9 Urethral stricture, unspecified; L89.219 Pressure ulcer of right hip, unspecified stage; K59.8 Other specified functional intestinal disorders; D73.89 Other diseases of spleen; Z90.49 Acquired absence of other specified parts of digestive tract
CPT/HCPCS: 74176

== ENCOUNTER 2017-07-14 09:55 | Outpatient (CLI) | payer MEDICARE, OTHER ==
--- NOTE | 2017-07-14 11:57 | PRG ---
DATE OF SERVICE: 07/14/2017 HISTORY: Mr. Preston Malcolm is a very pleasant 37-year-old gentleman who presents to the Wound Center f or evaluation of right and left decubitus ulcerations. The patient continues to receive dressing joseph nges with the assistance of Home Health. Mr. Malcolm states that offloading for his decubitus ulcerati ons has been less than optimal recently. He denies any fever or chills. PHYSICAL EXAMINATION: VITAL SIGNS: Temperature 98.0, pulse 56, respirations 18, blood pressure 115/75. EXTREMITIES: Two pressure ulcerations are present over the right ischium, which measure approximatel y 1.2 x 1.5 cm and 1.0 x 0.8 cm. An ulceration is present over the left ischium, which measures appr oximately 1.5 x 0.3 cm. All of the ulcerations are granulating. Nonviable tissue present within the margins of each wound was debrided with an excisional full-thickness debridement. No purulent drain age is associated with any of the wounds. No erythema of the skin surrounding any of the wounds is p resent. No maceration of the skin of the periwound of any of the wounds is noted. Bone is palpable within the margins of the superior right ischial wound. ASSESSMENT AND PLAN: 1. Right and left ischial decubitus ulcerations. As stated above, bone is palpable within the swapna ns of the superior right ischial wound. Plain films of the pelvis will be obtained today to look for findings suggestive of osteomyelitis. For the ulcerations, dressing changes of Hydrofera Blue and M epilex border are to be performed 3 times per week after cleansing and irrigation with the assistance of Home Health. 2. Incomplete paraplegia secondary to C5 fracture in 2000. 3. Neurogenic bladder. 4. Seizures. 5. Labile hypertension. 6. Nephrolithiasis. 7. Deep venous thrombosis in 2000 with inferior vena cava filter placement. 8. Peptic ulcer disease.
== END 2017-07-14 09:56 | disposition home or self-care (01) ==
LOC: WCC 09:55
PROVIDERS: ATTEND Family Medicine
DX: L89.229 Pressure ulcer of left hip, unspecified stage (principal); N31.9 Neuromuscular dysfunction of bladder, unspecified; R56.9 Unspecified convulsions; R03.0 Elevated blood-pressure reading, without diagnosis of hypertension; N20.0 Calculus of kidney; K27.9 Peptic ulcer, site unspecified, unspecified as acute or chronic, without hemorrhage or perforation; Z86.718 Personal history of other venous thrombosis and embolism; Z86.69 Personal history of other diseases of the nervous system and sense organs
CPT/HCPCS: 11042

== ENCOUNTER 2017-08-28 10:28 | Outpatient (CLI) | payer MEDICARE, OTHER ==
[2017-08-28] MEDS ORDERED: Lidocaine 2% Jelly 5 ML TUBE ONE (10:33)
[2017-08-28] MEDS ORDERED: Sodium Chloride 0.9% 15 ML NEB ONE (10:33)
--- NOTE | 2017-08-28 11:46 | PRG ---
DATE OF SERVICE: 08/28/2017 HISTORY: Mr. Preston Malcolm is a very pleasant 37-year-old gentleman who presents to the Wound Ce nter for evaluation of right and left ischial decubitus ulcerations. At the time of the patient's la st visit on 07/14/2017, bone was palpable within the margins of the patient's superior right ischial wound. At this time, arrangements were made for plain films of the pelvis to look for findings sugge stive of osteomyelitis. Plain films of the pelvis revealed increased lucency around the right acetab ular region. Radiology recommended MRI for a better assessment of the chronic changes around the rig ht acetabular region. The patient states that although arrangements had been made for MRI of the pel vis with and without contrast, he was admitted to [facility] in [place] for treat ment of his bilateral ischial wounds. The patient states that MRI was deferred. Apparently, the pat ient was seen in consultation by Infectious Diseases who recommended Bactrim DS for a total of 6 week s. Apparently, the patient will complete this course of treatment on 09/16/2017. The patient is now receiving negative pressure therapy for the superior right ischial wound with dressing changes of th e wound VAC with the assistance of Home Health. For the remaining ischial decubitus ulcerations, the patient states he believes he is receiving dressing changes of Promogran and also with the assistanc e of Home Health. PHYSICAL EXAMINATION: VITAL SIGNS: Temperature 97.9, pulse 73, respirations 18, blood pressure 119/74. BACK: Two pressure ulcerations are present over the right ischium, which measure approximately 4.8 x 3.2 cm and 0.2 x 0.2 cm. An ulceration is present over the left ischium, which measures approximate ly 0.5 x 0.5 cm. All of the ulcerations are granulating. Nonviable tissue present within the margin s of the superior right ischial wound was debrided with an excisional full-thickness debridement with the use of a curette. No purulent drainage is associated with any of the wounds. No erythema of th e skin surrounding any of the wounds is present. No maceration of the skin of the periwound of any o f the wounds is noted. Bone is no longer palpable within the margins of the superior right ischial w ound. ASSESSMENT AND PLAN: 1. Right and left ischial decubitus ulcerations. As stated above, bone is no longer palpable within the margins of the superior right ischial wound, as was palpable at the time of the patient's visit on 07/14/2017. Negative pressure therapy for the superior right ischial wound will be continued with dressing changes of the wound VAC 3 times per week with the assistance of Home Health. Orders will be transmitted to Home Health for dressing changes of Promogram to be continued for the remaining wou nds at the present frequency. The patient is also to continue p.o. Bactrim DS as per Infectious Dise ases. The patient was evaluated by Infectious Diseases at [facility] in [place], [place]. I will see Mr. Malcolm again in two weeks. 2. Incomplete paraplegia secondary to C5 fracture in 2000 3. Neurogenic bladder. 4. Seizures. 5. Labile hypertension. 6. Nephrolithiasis. 7. Deep venous thrombosis in 2000 with inferior vena cava filter placement. 8. Peptic ulcer disease.
== END 2017-08-28 10:29 | disposition home or self-care (01) ==
LOC: WCC 10:28
PROVIDERS: ATTEND Family Medicine
DX: L89.329 Pressure ulcer of left buttock, unspecified stage (principal); L89.319 Pressure ulcer of right buttock, unspecified stage; G82.22 Paraplegia, incomplete; N31.9 Neuromuscular dysfunction of bladder, unspecified; R56.9 Unspecified convulsions; K80.20 Calculus of gallbladder without cholecystitis without obstruction; K27.9 Peptic ulcer, site unspecified, unspecified as acute or chronic, without hemorrhage or perforation; I82.409 Acute embolism and thrombosis of unspecified deep veins of unspecified lower extremity; R09.89 Other specified symptoms and signs involving the circulatory and respiratory systems
CPT/HCPCS: 11042; A4218

== ENCOUNTER 2017-09-25 14:11 | Outpatient (CLI) | payer MEDICARE, OTHER ==
[2017-09-25 15:02] LABS: Hemoglobin 15.1 g/dL (14.0-18.0); Mean Corpuscular Volume 91.1 fL (78.0-98.0); Mean Platelet Volume 7.2 fL (7.4-10.4); Platelet Count 228 thou/uL (130-400); RBC Distribution Width 12.7 % (11.5-14.5); Red Blood Cell (RBC) Count 4.89 mill/uL (4.70-6.10); White Blood Cell (WBC) Count 10.3 thou/uL (4.8-10.8)
[2017-09-25 15:07] LABS: PTT 31.9 SEC (22.9-36.1); Prothrombin Time 13.5 SEC (12.0-14.7)
[2017-09-25 15:24] LABS: Anion Gap 13 mmol/L (10-20); BUN (Urea Nitrogen) 8 mg/dL (8.9-20.6); Calc. Creatinine Clearance 0 mL/min (70-130); Calcium 9.8 mg/dL (7.8-10.44); Carbon Dioxide 22 mmol/L (22-29); Chloride 106 mmol/L (98-107); Estimated GFR-MDRD Greater than 90; Glucose 92 mg/dL (70-105); Potassium 3.8 mmol/L (3.5-5.1); Sodium 137 mmol/L (136-145)
== END 2017-09-25 14:12 | disposition home or self-care (01) ==
LOC: LABBT 14:11
PROVIDERS: ATTEND Urology
DX: Z01.818 Encounter for other preprocedural examination (principal); N20.0 Calculus of kidney; N21.0 Calculus in bladder
CPT/HCPCS: 80048; 85027; 85610; 85730

== ENCOUNTER 2017-09-29 11:56 | Outpatient (CLI) | payer MEDICARE, MEDICAID ==
--- NOTE | 2017-09-29 15:38 | CT ---
CT ABDOMEN AND PELVIS NONCONTRAST: INDICATIONS: Bladder stone. Kidney stone. Neurogenic bladder. COMPARISON: 06/10/2017 FINDINGS: Redemonstration of a large, staghorn-shaped left renal calculus. Additional left lower pole renal ca lculus is also redemonstrated. There are multiple small right renal calculi. The patient's suprapub ic catheter remains in place with a thick-walled surrounding decompressed urinary bladder. Mild to m oderate distention of the left renal pelvis as a result of the large left renal calculus is grossly s table. Large bladder calculi remain. There is bibasilar atelectasis. Marked osseous deformity and chronic dislocations of each hip are ag ain seen. There is levoscoliosis of the lumbar spine. Parenchymal hypodensity of the right kidney, incompletely assessed by noncontrast imaging, is grossly stable. The bowel is incompletely evaluated without IV or enteric contrast. A partially imaged scr otum reveals prominent edema and hydrocele formation. Correlate clinically. IMPRESSION: Multiple urinary tract calculi, including large staghorn left renal calculus and large bladder calcul i remain. There are numerous punctate right renal calculi. The size of each renal collecting system is grossly stable. The suprapubic catheter remains in place. POS: GONZALEZ
== END 2017-09-29 11:57 | disposition home or self-care (01) ==
LOC: CT 11:56
PROVIDERS: ATTEND Urology
DX: N20.0 Calculus of kidney (principal); N21.0 Calculus in bladder; N31.9 Neuromuscular dysfunction of bladder, unspecified
CPT/HCPCS: 74176

== ENCOUNTER 2019-12-15 10:28 | Outpatient (CLI) | payer MEDICARE, OTHER ==
--- NOTE | 2019-12-15 11:10 | RAD ---
EXAM: Chest PA and lateral: HISTORY: Dyspnea COMPARISON: 07/01/2017 FINDINGS: Heart: Normal cardiac silhouette Aorta: Unremarkable Pulmonary vessels: Normal Costophrenic angles: Costophrenic angles are clear. Lungs: Stable hyperinflation. Dense consolidation of the left lower lobe due to atelectasis. Pneumothorax: No pneumothorax Osseous structures: No osseous abnormalities IMPRESSION: 1. Left lower lobe atelectasis with near complete collapse of the left lower lobe. 2. Compensatory hyperinflation of the left upper lobe. Results of study discussed with Dr. Kimbrough 12/15/2019 at 11:10 AM Code CR Transcribed Date/Time: 12/15/2019 11:24 AM
== END 2019-12-15 10:29 | disposition home or self-care (01) ==
LOC: BICRAD 10:28
PROVIDERS: ATTEND Internal Medicine Critical Care Medicine
DX: R06.00 Dyspnea, unspecified (principal); J98.11 Atelectasis; R91.8 Other nonspecific abnormal finding of lung field
CPT/HCPCS: 71046

== ENCOUNTER 2020-01-25 11:47 | Outpatient (CLI) | payer MEDICARE, MEDICAID ==
--- NOTE | 2020-01-25 13:44 | CT ---
CT CHEST WITHOUT CONTRAST: 01/25/20 INDICATIONS: Collapse of lower lobe. Shortness of breath and difficulty breathing. Correlation made to chest film 12/15/19 which showed atelectasis in the left lower lobe. Scoliosis to the right was seen in the thoracic spine. FINDINGS: There continues to be complete atelectasis of the left lower lobe with atelectatic left lower lobe se en on the posteromedial left lower chest. There appears to be occlusion of the left lower lobe bronch us. Bronchoscopy might be of benefit to further assess. There is atelectasis and/or infiltrative changes seen in the right lower lobe today which is a new fi nding. Pneumonia should be excluded along with atelectasis. There appears to be occlusion of the righ t lower lobe bronchus. Upper lobes appear aerated and clear. Mediastinum shows nonspecific lymph nodes. Images of upper abdomen unremarkable. The visualized thoracic vertebrae maintain height. Slight curvature to the right again noted. IMPRESSION: 1. Dense atelectasis left lower lobe with collapsed lung along the posteromedial left lower ches t. Occlusion of left lower lobe bronchus. 2. Atelectasis and infiltrative changes involving the right lower lobe today extending to the pl eural surface of the posterolateral right lung base with evidence of small loculated fluid collection along the pleural surfaces associated with this atelectasis and infiltrative process. POS: AGW
== END 2020-01-25 11:48 | disposition home or self-care (01) ==
LOC: BICCT 11:47
PROVIDERS: ATTEND Internal Medicine Critical Care Medicine
DX: J98.19 Other pulmonary collapse (principal); J98.11 Atelectasis; J98.4 Other disorders of lung; R91.8 Other nonspecific abnormal finding of lung field
CPT/HCPCS: 71250

== ENCOUNTER 2020-02-03 09:03 | Day surgery (SDC) | payer MEDICARE, MEDICAID ==
[2020-02-02 11:22] VITALS: BMI 15.9
[2020-02-03] MEDS ORDERED: Fentanyl 100 MCG/2 ML VIAL ONE (10:10)
--- NOTE | 2020-02-03 11:20 | OP ---
DATE OF PROCEDURE: 02/03/2020 PROCEDURE PERFORMED: Fiberoptic bronchoscopy. PREOPERATIVE DIAGNOSIS: Lower lobe atelectasis bilaterally, left greater than right. POSTOPERATIVE DIAGNOSIS: No indication of endobronchial obstruction or tumor. ANESTHESIA: General endotracheal. DESCRIPTION OF PROCEDURE: Informed consent was obtained prior to the procedure. The patient was placed in the supine position on the operating room table. He was intubated by the anesthesia staff. He was then placed on mechanical ventilation. The adapter was placed over the endotracheal tube. An Olympus bronchoscope was placed through the endotracheal tube. The yovana was sharp. The right mainstem bronchus, right upper lobe, right middle lobe, and right lower lobe were free of endobronchial lesions. There were some scant mucoid secretions of no consequence. The left mainstem bronchus, left upper lobe, and left lower lobe showed no evidence of mucus plugging or endobronchial tumor. Washings were obtained from the right lower lobe and left lower lobe and pulled and sent for microbiology. The patient tolerated the procedure well. Job ID: [id number]
[2020-02-03] MEDS ORDERED: Glycopyrrolate 0.2 MG/ML 5 ML SYRINGE ONE (11:37)
[2020-02-03] MEDS ORDERED: PROPOFOL 200 MG/20 ML VIAL ONE (11:37)
[2020-02-03] MEDS ORDERED: Rocuronium Bromide 10 MG/ML (10ML VIAL) ONE (11:37)
[2020-02-03] MEDS ORDERED: Lidocaine 1% PF 5 ML VIAL ONE (11:37)
[2020-02-07 09:36] LABS: Fungus Stain Final report (.)
== END 2020-02-03 12:20 | disposition home or self-care (01) ==
LOC: SDC 09:03
PROVIDERS: ATTEND Internal Medicine Critical Care Medicine
PROC: 0B9J8ZX Drainage of Left Lower Lung Lobe, Via Natural or Artificial Opening Endoscopic, Diagnostic (ICD-10-PCS; principal; 2020-02-03)
PROC: 0B9F8ZX Drainage of Right Lower Lung Lobe, Via Natural or Artificial Opening Endoscopic, Diagnostic (ICD-10-PCS; 2020-02-03)
DX: J98.11 Atelectasis (principal); Z79.899 Other long term (current) drug therapy; Z88.0 Allergy status to penicillin; Z88.1 Allergy status to other antibiotic agents; Z88.5 Allergy status to narcotic agent; Z88.6 Allergy status to analgesic agent; Z91.041 Radiographic dye allergy status
CPT/HCPCS: 87070; 87102; 87116; 87205; 87206; J2704; J3010

== ENCOUNTER 2020-11-10 16:05 | Emergency (ER) | payer MEDICARE, OTHER, MEDICAID | END 2020-11-12 08:17 | disposition home or self-care (01) | LOC: ERS 16:05 | DX: J69.0 Pneumonitis due to inhalation of food and vomit (principal) | CPT/HCPCS: 71045; 99283 ==

== ENCOUNTER 2021-10-03 22:16 | Inpatient (IN) | payer MEDICARE, MEDICAID ==
[2021-10-04 00:02] VITALS: BMI 14.4
[2021-10-04] MEDS ORDERED: Ondansetron PF 4 MG/2 ML Vial IVP PRN (01:40)
[2021-10-04] MEDS: Acetaminophen 325 MG TAB PO PRN ×3 (02:02→20:11)
[2021-10-04] MEDS: Sodium Chloride 0.9% 1,000 ML IV SCH ×3 (02:03→20:08)
[2021-10-04 02:43] LABS: #Eosinphils 0.1 thou/uL (0.0-0.7); #Lymphocytes 0.9 thou/uL (1.20-3.40); #Monocytes 0.9 thou/uL (0.11-0.59); #Neutrophils 7.9 thou/uL (1.40-6.50); %Eosinophils 1.4 % (0.0-10.0); %Monocytes 9.1 % (0.0-10.0); %Neutrophils 80.5 % (42.0-75.0); Hemoglobin 13.3 g/dL (14.0-18.0); Mean Corpuscular HGB CONC 33.6 g/dL (32.0-36.0); Mean Corpuscular Hemoglobin 30.9 pg (27.0-31.0); Mean Corpuscular Volume 91.9 fL (78.0-98.0); Mean Platelet Volume 7.4 fL (7.4-10.4); Platelet Count 229 thou/uL (130-400); RBC Distribution Width 12.8 % (11.5-14.5); Red Blood Cell (RBC) Count 4.31 mill/uL (4.70-6.10); White Blood Cell (WBC) Count 9.8 thou/uL (4.8-10.8)
[2021-10-04 03:09] LABS: Anion Gap 15 mmol/L (10-20); BUN (Urea Nitrogen) 21 mg/dL (8.9-20.6); Calc. Creatinine Clearance 81 mL/min (70-130); Calcium 9.1 mg/dL (7.8-10.44); Carbon Dioxide 19 mmol/L (22-29); Chloride 109 mmol/L (98-107); Estimated GFR 116; Glucose 116 mg/dL (70-105); Potassium 3.6 mmol/L (3.5-5.1); Sodium 139 mmol/L (136-145)
[2021-10-04 03:36] LABS: SARS-CoV-2 NAA Rapid Test Not Detected (NotDetected)
[2021-10-04] MEDS ORDERED: Vancomycin HCl 750 MG in Sodium Chloride 0.9% 250 ML 250 ML IVPB SCH (06:30)
[2021-10-04] MEDS ORDERED: Cefepime 1 GM in Sodium Chloride 0.9% 100 ML IVPB SCH (08:00)
[2021-10-04] MEDS ORDERED: diphenhydrAMINE 50 MG/ML VIAL IM/IV SCH (13:30)
[2021-10-04] MEDS ORDERED: Pregabalin 75 MG CAP PO SCH (14:15)
[2021-10-04] MEDS ORDERED: Baclofen 10 MG TAB PO SCH (14:15)
[2021-10-04] MEDS: Vancomycin HCl 750 MG in Sodium Chloride 0.9% 250 ML 250 ML IVPB SCH (15:35)
[2021-10-04] MEDS: Baclofen 10 MG TAB PO SCH ×2 (17:25→20:10)
[2021-10-04] MEDS: Cefepime 2 GM in Sodium Chloride 0.9% 100 ML IVPB SCH (20:10)
[2021-10-04] MEDS: Pregabalin 75 MG CAP PO SCH (20:10)
[2021-10-04 21:32] LABS: Vancomycin, Trough 26.2 ug/mL
[2021-10-05] MEDS: Vancomycin HCl 750 MG in Sodium Chloride 0.9% 250 ML 250 ML IVPB SCH ×3 (00:20→17:00)
[2021-10-05 04:38] LABS: #Eosinphils 0.2 thou/uL (0.0-0.7); #Lymphocytes 1.8 thou/uL (1.20-3.40); #Monocytes 0.8 thou/uL (0.11-0.59); #Neutrophils 4.5 thou/uL (1.40-6.50); %Basophils 0.2 % (0.0-1.0); %Eosinophils 2.5 % (0.0-10.0); %Lymphocytes 24.8 % (21.0-51.0); %Monocytes 11.4 % (0.0-10.0); %Neutrophils 61.1 % (42.0-75.0); Hemoglobin 11.9 g/dL (14.0-18.0); Mean Corpuscular HGB CONC 33.1 g/dL (32.0-36.0); Mean Corpuscular Hemoglobin 30.5 pg (27.0-31.0); Mean Corpuscular Volume 92.1 fL (78.0-98.0); Mean Platelet Volume 7.3 fL (7.4-10.4); Platelet Count 212 thou/uL (130-400); Red Blood Cell (RBC) Count 3.92 mill/uL (4.70-6.10); White Blood Cell (WBC) Count 7.3 thou/uL (4.8-10.8)
[2021-10-05 04:45] LABS: Vancomycin, Random 15.5 ug/mL (See Comment)
[2021-10-05 04:47] LABS: Anion Gap 11 mmol/L (10-20); BUN (Urea Nitrogen) 15 mg/dL (8.9-20.6); Calc. Creatinine Clearance 89 mL/min (70-130); Calcium 8.7 mg/dL (7.8-10.44); Carbon Dioxide 22 mmol/L (22-29); Chloride 111 mmol/L (98-107); Estimated GFR 119; Glucose 79 mg/dL (70-105); Magnesium 1.9 mg/dL (1.6-2.6); Sodium 140 mmol/L (136-145)
[2021-10-05] MEDS: diphenhydrAMINE 50 MG/ML VIAL IVP PRN ×2 (05:24→16:54)
[2021-10-05] MEDS: Cefepime 2 GM in Sodium Chloride 0.9% 100 ML IVPB SCH ×2 (08:54→21:46)
[2021-10-05] MEDS: Pregabalin 75 MG CAP PO SCH ×2 (08:54→21:47)
[2021-10-05] MEDS: Baclofen 10 MG TAB PO SCH ×4 (08:55→21:48)
[2021-10-05] MEDS: Acetaminophen 325 MG TAB PO PRN ×2 (10:47→21:46)
[2021-10-05] MEDS: Sodium Chloride 0.9% 1,000 ML IV SCH (15:30)
[2021-10-06] MEDS: diphenhydrAMINE 50 MG/ML VIAL IVP PRN ×2 (05:21→17:44)
[2021-10-06] MEDS: Vancomycin HCl 750 MG in Sodium Chloride 0.9% 250 ML 250 ML IVPB SCH ×2 (05:21→17:45)
[2021-10-06 05:42] LABS: #Eosinphils 0.3 thou/uL (0.0-0.7); #Monocytes 0.5 thou/uL (0.11-0.59); #Neutrophils 3.7 thou/uL (1.40-6.50); %Basophils 0.2 % (0.0-1.0); %Eosinophils 4.2 % (0.0-10.0); %Lymphocytes 30.3 % (21.0-51.0); %Monocytes 7.7 % (0.0-10.0); %Neutrophils 57.6 % (42.0-75.0); Hemoglobin 11.3 g/dL (14.0-18.0); Mean Corpuscular HGB CONC 32.8 g/dL (32.0-36.0); Mean Corpuscular Hemoglobin 30.3 pg (27.0-31.0); Mean Corpuscular Volume 92.4 fL (78.0-98.0); Mean Platelet Volume 7.5 fL (7.4-10.4); Platelet Count 228 thou/uL (130-400); RBC Distribution Width 12.9 % (11.5-14.5); Red Blood Cell (RBC) Count 3.72 mill/uL (4.70-6.10); White Blood Cell (WBC) Count 6.5 thou/uL (4.8-10.8)
[2021-10-06 06:02] LABS: Anion Gap 12 mmol/L (10-20); BUN (Urea Nitrogen) 10 mg/dL (8.9-20.6); Calc. Creatinine Clearance 81 mL/min (70-130); Calcium 8.7 mg/dL (7.8-10.44); Carbon Dioxide 24 mmol/L (22-29); Chloride 110 mmol/L (98-107); Estimated GFR 116; Glucose 85 mg/dL (70-105); Magnesium 1.8 mg/dL (1.6-2.6); Potassium 4.6 mmol/L (3.5-5.1); Sodium 141 mmol/L (136-145)
[2021-10-06] MEDS: Sodium Chloride 0.9% 1,000 ML IV SCH ×2 (08:50→22:37)
[2021-10-06] MEDS: Cefepime 2 GM in Sodium Chloride 0.9% 100 ML IVPB SCH ×2 (08:51→21:36)
[2021-10-06] MEDS: Baclofen 10 MG TAB PO SCH ×4 (09:00→21:37)
[2021-10-06] MEDS: Pregabalin 75 MG CAP PO SCH ×2 (09:01→21:37)
[2021-10-06] MEDS: Acetaminophen 325 MG TAB PO PRN (09:03)
[2021-10-06] MEDS ORDERED: Oxybutynin 5 MG TAB PO SCH (09:45)
[2021-10-06] MEDS ORDERED: Enoxaparin Sodium 40 MG/0.4 ML SYRINGE SC SCH (09:45)
[2021-10-06] MEDS ORDERED: Multivit, Therapeutic 1 TAB PO SCH (09:45)
[2021-10-06] MEDS: Folic Acid 1 MG TAB PO SCH (10:19)
[2021-10-06 17:53] LABS: Vancomycin, Trough 21.7 ug/mL
[2021-10-07] MEDS: diphenhydrAMINE 50 MG/ML VIAL IVP PRN ×2 (05:08→18:18)
[2021-10-07] MEDS: Vancomycin HCl 500 MG in Sodium Chloride 0.9% 100 ML IVPB SCH ×2 (05:09→18:18)
[2021-10-07 05:54] LABS: #Eosinphils 0.2 thou/uL (0.0-0.7); #Lymphocytes 1.7 thou/uL (1.20-3.40); #Monocytes 0.5 thou/uL (0.11-0.59); #Neutrophils 4.5 thou/uL (1.40-6.50); %Basophils 0.1 % (0.0-1.0); %Eosinophils 3.1 % (0.0-10.0); %Lymphocytes 24.6 % (21.0-51.0); %Neutrophils 65.3 % (42.0-75.0); Hemoglobin 11.7 g/dL (14.0-18.0); Mean Corpuscular HGB CONC 32.9 g/dL (32.0-36.0); Mean Corpuscular Hemoglobin 30.2 pg (27.0-31.0); Mean Platelet Volume 7.4 fL (7.4-10.4); Platelet Count 244 thou/uL (130-400); RBC Distribution Width 12.7 % (11.5-14.5); Red Blood Cell (RBC) Count 3.85 mill/uL (4.70-6.10); White Blood Cell (WBC) Count 6.8 thou/uL (4.8-10.8)
[2021-10-07 06:21] LABS: ALT (SGPT) 17 U/L (8-55); AST (SGOT) 22 U/L (5-34); Alkaline Phosphatase 134 U/L (40-110); Anion Gap 12 mmol/L (10-20); BUN (Urea Nitrogen) 11 mg/dL (8.9-20.6); Bilirubin, Direct 0.1 mg/dL (0.1-0.3); Bilirubin, Total 0.3 mg/dL (0.2-1.2); Calc. Creatinine Clearance 85 mL/min (70-130); Carbon Dioxide 25 mmol/L (22-29); Chloride 105 mmol/L (98-107); Estimated GFR 117; Glucose 108 mg/dL (70-105); Magnesium 1.8 mg/dL (1.6-2.6); Potassium 4.8 mmol/L (3.5-5.1); Protein, Total 7.1 g/dL (6.0-8.3); Sodium 137 mmol/L (136-145)
[2021-10-07] MEDS: Cefepime 2 GM in Sodium Chloride 0.9% 100 ML IVPB SCH ×2 (08:51→20:39)
[2021-10-07] MEDS: Folic Acid 1 MG TAB PO SCH (08:53)
[2021-10-07] MEDS: Baclofen 10 MG TAB PO SCH ×4 (08:53→20:39)
[2021-10-07] MEDS: Enoxaparin Sodium 30 MG/0.3 ML SYRINGE SC SCH (08:54)
[2021-10-07] MEDS: Pregabalin 75 MG CAP PO SCH ×2 (08:54→20:38)
[2021-10-07] MEDS: Multivit, Therapeutic 1 TAB PO SCH (08:54)
[2021-10-07] MEDS: Oxybutynin 5 MG TAB PO SCH (08:54)
[2021-10-07] MEDS ORDERED: Enoxaparin Sodium 40 MG/0.4 ML SYRINGE SC SCH (09:00)
[2021-10-07] MEDS: Sodium Chloride 0.9% 1,000 ML IV SCH ×2 (13:52→20:40)
[2021-10-07] MEDS: Acetaminophen 325 MG TAB PO PRN (20:38)
[2021-10-08] MEDS: Vancomycin HCl 500 MG in Sodium Chloride 0.9% 100 ML IVPB SCH (05:41)
[2021-10-08] MEDS: diphenhydrAMINE 50 MG/ML VIAL IVP PRN (05:45)
[2021-10-08 06:21] LABS: #Eosinphils 0.2 thou/uL (0.0-0.7); #Lymphocytes 2.1 thou/uL (1.20-3.40); #Monocytes 0.4 thou/uL (0.11-0.59); #Neutrophils 3.5 thou/uL (1.40-6.50); %Basophils 0.3 % (0.0-1.0); %Lymphocytes 33.8 % (21.0-51.0); %Monocytes 6.9 % (0.0-10.0); %Neutrophils 55.1 % (42.0-75.0); Hemoglobin 12.4 g/dL (14.0-18.0); Mean Corpuscular HGB CONC 32.8 g/dL (32.0-36.0); Mean Corpuscular Hemoglobin 30.4 pg (27.0-31.0); Mean Corpuscular Volume 92.7 fL (78.0-98.0); Mean Platelet Volume 7.5 fL (7.4-10.4); Platelet Count 252 thou/uL (130-400); RBC Distribution Width 12.6 % (11.5-14.5); Red Blood Cell (RBC) Count 4.07 mill/uL (4.70-6.10); White Blood Cell (WBC) Count 6.3 thou/uL (4.8-10.8)
[2021-10-08 06:45] LABS: Anion Gap 9 mmol/L (10-20); BUN (Urea Nitrogen) 14 mg/dL (8.9-20.6); Calc. Creatinine Clearance 84 mL/min (70-130); Calcium 9.1 mg/dL (7.8-10.44); Carbon Dioxide 31 mmol/L (22-29); Chloride 104 mmol/L (98-107); Estimated GFR 117; Glucose 89 mg/dL (70-105); Magnesium 1.9 mg/dL (1.6-2.6); Potassium 4.9 mmol/L (3.5-5.1); Sodium 139 mmol/L (136-145)
[2021-10-08] MEDS: Multivit, Therapeutic 1 TAB PO SCH (08:18)
[2021-10-08] MEDS: Folic Acid 1 MG TAB PO SCH (08:18)
[2021-10-08] MEDS: Oxybutynin 5 MG TAB PO SCH (08:18)
[2021-10-08] MEDS: Pregabalin 75 MG CAP PO SCH ×2 (08:19→20:10)
[2021-10-08] MEDS: Enoxaparin Sodium 30 MG/0.3 ML SYRINGE SC SCH (08:19)
[2021-10-08] MEDS: Baclofen 10 MG TAB PO SCH ×4 (08:20→20:10)
[2021-10-08] MEDS: Meropenem 1 GM in Sodium Chloride 0.9% 100 ML IVPB SCH ×2 (10:00→16:05)
[2021-10-08] MEDS: Sodium Chloride 0.9% 1,000 ML IV SCH (11:54)
[2021-10-09] MEDS: Meropenem 1 GM in Sodium Chloride 0.9% 100 ML IVPB SCH ×3 (01:41→16:25)
[2021-10-09] MEDS: Sodium Chloride 0.9% 1,000 ML IV SCH (01:43)
[2021-10-09 07:53] LABS: #Eosinphils 0.2 thou/uL (0.0-0.7); #Lymphocytes 2.1 thou/uL (1.20-3.40); #Monocytes 0.6 thou/uL (0.11-0.59); #Neutrophils 3.8 thou/uL (1.40-6.50); %Basophils 0.3 % (0.0-1.0); %Eosinophils 3.4 % (0.0-10.0); %Lymphocytes 31.2 % (21.0-51.0); %Monocytes 9.3 % (0.0-10.0); %Neutrophils 55.9 % (42.0-75.0); Hemoglobin 12.1 g/dL (14.0-18.0); Mean Corpuscular HGB CONC 32.7 g/dL (32.0-36.0); Mean Corpuscular Hemoglobin 30.6 pg (27.0-31.0); Mean Corpuscular Volume 93.5 fL (78.0-98.0); Mean Platelet Volume 7.3 fL (7.4-10.4); Platelet Count 245 thou/uL (130-400); RBC Distribution Width 12.5 % (11.5-14.5); Red Blood Cell (RBC) Count 3.97 mill/uL (4.70-6.10); White Blood Cell (WBC) Count 6.7 thou/uL (4.8-10.8)
[2021-10-09 08:13] LABS: Anion Gap 9 mmol/L (10-20); BUN (Urea Nitrogen) 26 mg/dL (8.9-20.6); Calc. Creatinine Clearance 81 mL/min (70-130); Calcium 9.4 mg/dL (7.8-10.44); Carbon Dioxide 32 mmol/L (22-29); Chloride 102 mmol/L (98-107); Estimated GFR 116; Glucose 96 mg/dL (70-105); Magnesium 1.9 mg/dL (1.6-2.6); Potassium 4.7 mmol/L (3.5-5.1); Sodium 138 mmol/L (136-145)
[2021-10-09] MEDS: Pregabalin 75 MG CAP PO SCH (09:27)
[2021-10-09] MEDS: Baclofen 10 MG TAB PO SCH ×3 (09:28→16:25)
[2021-10-09] MEDS: Folic Acid 1 MG TAB PO SCH (09:28)
[2021-10-09] MEDS: Enoxaparin Sodium 30 MG/0.3 ML SYRINGE SC SCH (09:28)
[2021-10-09] MEDS: Multivit, Therapeutic 1 TAB PO SCH (09:28)
[2021-10-09] MEDS: Acetaminophen 325 MG TAB PO PRN (09:38)
[2021-10-09] MEDS: Oxybutynin 5 MG TAB PO SCH (09:39)
[2021-10-09 12:09] VITALS: TEMP 97.6
[2021-10-09 15:55] VITALS: BP 120/88
== END 2021-10-09 17:42 | disposition home or self-care (01) | DRG 539 ==
LOC: SURG A 22:50 → OBSVTOIN 10-04 01:40
PROVIDERS: ADMIT Family Medicine; ATTEND Family Medicine
PROC: 05HY33Z Insertion of Infusion Device into Upper Vein, Percutaneous Approach (ICD-10-PCS; principal; 2021-10-08)
DX: M46.28 Osteomyelitis of vertebra, sacral and sacrococcygeal region (principal); E43 Unspecified severe protein-calorie malnutrition; L89.154 Pressure ulcer of sacral region, stage 4; G82.54 Quadriplegia, C5-C7 incomplete; G82.20 Paraplegia, unspecified; Z68.1 Body mass index [BMI] 19.9 or less, adult; M86.8X8 Other osteomyelitis, other site; Z20.822 Contact with and (suspected) exposure to COVID-19; I10 Essential (primary) hypertension; N31.9 Neuromuscular dysfunction of bladder, unspecified; Z88.5 Allergy status to narcotic agent; Z88.1 Allergy status to other antibiotic agents; Z91.010 Allergy to peanuts; Z79.899 Other long term (current) drug therapy; Z87.891 Personal history of nicotine dependence; Z93.3 Colostomy status
CPT/HCPCS: 36415; 36569; 72195; 80048; 80076; 80202; 83735; 85025; 87040; 87070; 87077; 87186; 87205; 93005; 93010; 97139; 99213; C1751; G0463; J0692; J1200; J1650; J2185; J3370; J3490; J7050; U0002

== ENCOUNTER 2023-02-18 09:55 | Inpatient (IN) | payer MEDICARE, MEDICAID ==
[~2023-02-18 09:55] MED LIST: Iopamidol-370 76% 500 ML MDV (1 ML CHARGE) ONE
[2023-02-18] MEDS ORDERED: metroNIDAZOLE 500 MG (100 mL) BAG ONE (10:27)
[2023-02-18 10:31] LABS: #Eosinphils 0.2 thou/uL (0.0-0.7); #Monocytes 0.9 thou/uL (0.11-0.59); #Neutrophils 5.5 thou/uL (1.40-6.50); %Basophils 0.1 % (0.0-1.0); %Eosinophils 2.3 % (0.0-10.0); %Monocytes 10.1 % (0.0-10.0); %Neutrophils 64.9 % (42.0-75.0); Hematocrit 40.1 % (42.0-52.0); Hemoglobin 13.4 g/dL (14.0-18.0); Mean Corpuscular HGB CONC 33.4 g/dL (32.0-36.0); Mean Corpuscular Hemoglobin 31.2 pg (27.0-31.0); Mean Corpuscular Volume 93.5 fl (78.0-98.0); Mean Platelet Volume 10.3 fL (7.4-10.4); Platelet Count 199 10x3/uL (130-400); RBC Distribution Width 13.3 % (11.5-14.5); Red Blood Cell (RBC) Count 4.29 mill/uL (4.70-6.10); White Blood Cell (WBC) Count 8.4 10x3/uL (4.8-10.8)
[2023-02-18 10:46] LABS: Prothrombin Time 13.7 sec (12.0-14.7)
[2023-02-18 10:47] LABS: PTT 35.7 sec (22.9-36.1)
[2023-02-18 10:49] LABS: ALT (SGPT) 16 U/L (8-55); AST (SGOT) 18 U/L (5-34); Albumin 3.3 g/dL (3.5-5.0); Alkaline Phosphatase 128 U/L (40-110); Anion Gap 12 mmol/L (10-20); BUN (Urea Nitrogen) 15 mg/dL (8.9-20.6); Bilirubin, Total 0.4 mg/dL (0.2-1.2); Calc. Creatinine Clearance 0 mL/min (70-130); Calcium 8.8 mg/dL (7.8-10.44); Carbon Dioxide 24 mmol/L (22-29); Chloride 106 mmol/L (98-107); Estimated GFR 115; Globulin 3.6 g/dL (2.4-3.5); Glucose 95 mg/dL (70-105); Magnesium 1.9 mg/dL (1.6-2.6); Potassium 4.1 mmol/L (3.5-5.1); Protein, Total 6.9 g/dL (6.0-8.3); Sodium 138 mmol/L (136-145)
[2023-02-18 10:53] LABS: Troponin I Less than 0.010 ng/mL (< 0.028)
[2023-02-18] MEDS ORDERED: Meropenem 1 GM in Sodium Chloride 0.9% 100 ML IVPB SCH (11:00)
[2023-02-18] MEDS ORDERED: fentaNYL 50 mcg/mL 1 mL Vial ONE (14:06)
[2023-02-18] MEDS ORDERED: Acetaminophen 325 MG TAB PO PRN (14:20)
[2023-02-18] MEDS: Meropenem 1 GM in Sodium Chloride 0.9% 100 ML IVPB SCH (21:14)
[2023-02-18] MEDS: Famotidine 20 MG TAB PO SCH (21:15)
[2023-02-19] MEDS ORDERED: Pregabalin 75 MG CAP PO SCH ×2 (00:15→09:00)
[2023-02-19 06:00] LABS: #Eosinphils 0.2 thou/uL (0.0-0.7); #Monocytes 0.6 thou/uL (0.11-0.59); #Neutrophils 4.2 thou/uL (1.40-6.50); %Eosinophils 2.5 % (0.0-10.0); %Lymphocytes 15.7 % (21.0-51.0); %Monocytes 10.7 % (0.0-10.0); %Neutrophils 70.6 % (42.0-75.0); Hematocrit 36.7 % (42.0-52.0); Hemoglobin 12.3 g/dL (14.0-18.0); Mean Corpuscular HGB CONC 33.5 g/dL (32.0-36.0); Mean Corpuscular Hemoglobin 31.2 pg (27.0-31.0); Mean Corpuscular Volume 93.1 fl (78.0-98.0); Mean Platelet Volume 10.4 fL (7.4-10.4); Platelet Count 193 10x3/uL (130-400); RBC Distribution Width 13.3 % (11.5-14.5); Red Blood Cell (RBC) Count 3.94 mill/uL (4.70-6.10)
[2023-02-19] MEDS: Meropenem 1 GM in Sodium Chloride 0.9% 100 ML IVPB SCH ×3 (06:07→21:51)
[2023-02-19 06:23] LABS: Anion Gap 10 mmol/L (10-20); BUN (Urea Nitrogen) 10 mg/dL (8.9-20.6); Calc. Creatinine Clearance 82 mL/min (70-130); Calcium 8.1 mg/dL (7.8-10.44); Carbon Dioxide 25 mmol/L (22-29); Chloride 105 mmol/L (98-107); Estimated GFR 116; Glucose 86 mg/dL (70-105); Sodium 136 mmol/L (136-145)
[2023-02-19] MEDS ORDERED: Enoxaparin 40 MG (0.4 mL) SYRINGE SC SCH (09:00)
[2023-02-19] MEDS: Multivitamin W/ Minerals 1 TAB PO SCH (09:11)
[2023-02-19] MEDS: Pregabalin 75 MG CAP PO SCH ×2 (09:11→21:50)
[2023-02-19] MEDS: Oxybutynin ER 5 MG TAB PO SCH (09:12)
[2023-02-19] MEDS: Famotidine 20 MG TAB PO SCH ×2 (09:12→21:51)
[2023-02-19] MEDS: Baclofen 10 MG TAB PO PRN (11:21)
[2023-02-19] MEDS: HYDROcodone/Acetaminophen 5/325 mg Tablet PO PRN ×2 (13:56→17:45)
[2023-02-20] MEDS: Meropenem 1 GM in Sodium Chloride 0.9% 100 ML IVPB SCH ×3 (05:03→20:17)
[2023-02-20] MEDS: HYDROcodone/Acetaminophen 5/325 mg Tablet PO PRN ×3 (05:10→19:02)
[2023-02-20 06:23] LABS: #Eosinphils 0.1 thou/uL (0.0-0.7); #Monocytes 0.5 thou/uL (0.11-0.59); #Neutrophils 4.2 thou/uL (1.40-6.50); %Basophils 0.4 % (0.0-1.0); %Eosinophils 1.7 % (0.0-10.0); %Lymphocytes 8.2 % (21.0-51.0); %Monocytes 9.7 % (0.0-10.0); %Neutrophils 79.8 % (42.0-75.0); Hematocrit 39.5 % (42.0-52.0); Hemoglobin 13.2 g/dL (14.0-18.0); Mean Corpuscular HGB CONC 33.4 g/dL (32.0-36.0); Mean Corpuscular Hemoglobin 30.7 pg (27.0-31.0); Mean Corpuscular Volume 91.9 fl (78.0-98.0); Mean Platelet Volume 10.6 fL (7.4-10.4); Platelet Count 195 10x3/uL (130-400); RBC Distribution Width 13.2 % (11.5-14.5); White Blood Cell (WBC) Count 5.3 10x3/uL (4.8-10.8)
[2023-02-20 06:47] LABS: Anion Gap 15 mmol/L (10-20); BUN (Urea Nitrogen) 15 mg/dL (8.9-20.6); Calc. Creatinine Clearance 82 mL/min (70-130); Calcium 8.7 mg/dL (7.8-10.44); Carbon Dioxide 23 mmol/L (22-29); Chloride 103 mmol/L (98-107); Estimated GFR 117; Glucose 86 mg/dL (70-105); Potassium 3.9 mmol/L (3.5-5.1); Sodium 137 mmol/L (136-145)
[2023-02-20] MEDS: Famotidine 20 MG TAB PO SCH ×2 (08:30→20:16)
[2023-02-20] MEDS: Multivitamin W/ Minerals 1 TAB PO SCH (08:30)
[2023-02-20] MEDS: Pregabalin 75 MG CAP PO SCH ×2 (08:30→20:17)
[2023-02-20] MEDS: Baclofen 10 MG TAB PO PRN (08:30)
[2023-02-20] MEDS: Oxybutynin ER 5 MG TAB PO SCH (08:30)
[2023-02-20] MEDS: Enoxaparin 30 MG (0.3 mL) SYRINGE SC SCH (08:31)
[2023-02-21 03:57] VITALS: BMI 13.8
[2023-02-21] MEDS: Meropenem 1 GM in Sodium Chloride 0.9% 100 ML IVPB SCH ×2 (05:03→13:49)
[2023-02-21] MEDS: HYDROcodone/Acetaminophen 5/325 mg Tablet PO PRN ×2 (05:04→14:00)
[2023-02-21 07:38] VITALS: TEMP 98.1
[2023-02-21] MEDS ORDERED: Sodium Bicarbonate 2.5 MEQ/5 ML VIAL ONE (07:47)
[2023-02-21] MEDS ORDERED: Lidocaine 1% PF 5 ML VIAL ONE (07:47)
[2023-02-21] MEDS: Famotidine 20 MG TAB PO SCH ×2 (10:59→21:54)
[2023-02-21] MEDS: Pregabalin 75 MG CAP PO SCH ×2 (10:59→21:54)
[2023-02-21] MEDS: Multivitamin W/ Minerals 1 TAB PO SCH (11:00)
[2023-02-21] MEDS: Oxybutynin ER 5 MG TAB PO SCH (11:00)
[2023-02-21] MEDS: Enoxaparin 30 MG (0.3 mL) SYRINGE SC SCH (11:02)
[2023-02-21 15:56] VITALS: BP 155/98
== END 2023-02-21 19:41 | disposition home or self-care (01) | DRG 539 ==
LOC: ERS 09:55 → SURG A 13:25
PROVIDERS: ADMIT Hospitalist; ATTEND Internal Medicine
PROC: 02HV33Z Insertion of Infusion Device into Superior Vena Cava, Percutaneous Approach (ICD-10-PCS; principal; 2023-02-21)
PROC: B5181ZA Fluoroscopy of Superior Vena Cava using Low Osmolar Contrast, Guidance (ICD-10-PCS; 2023-02-21)
PROC: B548ZZA Ultrasonography of Superior Vena Cava, Guidance (ICD-10-PCS; 2023-02-21)
DX: M86.8X8 Other osteomyelitis, other site (principal); E43 Unspecified severe protein-calorie malnutrition; G82.20 Paraplegia, unspecified; Z68.1 Body mass index [BMI] 19.9 or less, adult; L97.419 Non-pressure chronic ulcer of right heel and midfoot with unspecified severity; I10 Essential (primary) hypertension; N20.0 Calculus of kidney; N43.3 Hydrocele, unspecified; N31.9 Neuromuscular dysfunction of bladder, unspecified; Z87.891 Personal history of nicotine dependence; Z98.890 Other specified postprocedural states; Z79.899 Other long term (current) drug therapy
CPT/HCPCS: 36415; 36569; 71045; 74177; 76870; 78315; 80048; 80053; 83605; 83735; 84484; 85025; 85610; 85730; 86140; 87040; 87070; 87077; 87186; 87205; 93005; 93976; 94760; 96365; 96367; 96375; 97139; A9503; C1751; J1650; J2185; J3010; J3490; Q9967

== ENCOUNTER → 2023-09-09 | Day surgery (SDC) | payer MEDICARE, MEDICAID ==
[~2023-09-09] MED LIST changes: -Iopamidol-370 76% 500 ML MDV (1 ML CHARGE) ONE; +Lidocaine 1% PF 5 ML VIAL ONE; +Sodium Bicarbonate 2.5 MEQ/5 ML SDV ONE
== END ==
LOC: SPEC 08:37
PROVIDERS: ATTEND Nurse Practitioner Family
PROC: 05H533Z Insertion of Infusion Device into Right Subclavian Vein, Percutaneous Approach (ICD-10-PCS; principal; 2023-09-09)
DX: G82.20 Paraplegia, unspecified (principal); L89.154 Pressure ulcer of sacral region, stage 4; Z91.018 Allergy to other foods; Z88.5 Allergy status to narcotic agent; Z79.899 Other long term (current) drug therapy; Z88.8 Allergy status to other drugs, medicaments and biological substances
CPT/HCPCS: 36569; 76000; 76937; 77001

== ENCOUNTER 2023-09-13 13:40 | Day surgery (SDC) | payer MEDICARE, OTHER ==
[2023-09-13] MEDS: CEFTAZIDIME FORTAZ IVPB SCH (14:09)
[2023-09-13] MEDS: SODIUM CHLORIDE 0.9% IVPB SCH (14:09)
[2023-09-13 14:44] VITALS: BP 99/62; TEMP 97.6
== END 2023-09-13 15:03 | disposition home or self-care (01) ==
LOC: ONC/OP 13:40
PROVIDERS: ATTEND Nurse Practitioner Family
DX: L89.154 Pressure ulcer of sacral region, stage 4 (principal); Z88.5 Allergy status to narcotic agent; Z88.1 Allergy status to other antibiotic agents; Z91.018 Allergy to other foods; Z88.8 Allergy status to other drugs, medicaments and biological substances
CPT/HCPCS: 96365; J0713; J1642; J3490

== ENCOUNTER 2024-11-06 19:56 | Inpatient (IN) | payer MEDICARE, MEDICAID ==
[2024-11-06] MEDS ORDERED: Senokot S 8.6-50 MG TAB PO PRN (22:12)
[2024-11-06] MEDS ORDERED: Ondansetron PF 4 MG/2 ML Vial IVP PRN (22:12)
[2024-11-06] MEDS ORDERED: Calcium Carbonate 500 MG ChewTAB PO PRN (22:12)
[2024-11-06] MEDS ORDERED: Electrolyte Replacement Protocol 1 EACH FS SCH (22:15)
[2024-11-06] MEDS: Acetaminophen 325 MG TAB PO PRN (22:47)
[2024-11-07 05:36] LABS: #Basophils Less than 0.03 10x3/uL (0.0-0.2); #Eosinophils 0.23 10x3/uL (0.0-0.7); #Monocytes 0.58 10x3/uL (0.11-0.59); #Neutrophils 2.52 10x3/uL (1.40-6.50); %Basophils 0.2 % (0.0-1.0); %Eosinophils 4.3 % (0.0-10.0); %Lymphocytes 36.6 % (21.0-51.0); %Monocytes 10.9 % (0.0-10.0); %Neutrophils 47.6 % (42.0-75.0); Hematocrit 38.1 % (42.0-52.0); Hemoglobin 12.6 g/dL (14.0-18.0); Mean Corpuscular Hemoglobin 29.6 pg (27.0-31.0); Mean Corpuscular Volume 89.6 fL (78.0-98.0); Platelet Count 161 10x3/uL (130-400); Red Blood Cell (RBC) Count 4.25 mill/uL (4.70-6.10); White Blood Cell (WBC) Count 5.30 10x3/uL (4.8-10.8)
[2024-11-07 05:50] LABS: ALT (SGPT) 9 U/L (Less than 45); AST (SGOT) 16 U/L (11-34); Albumin 2.4 g/dL (3.1-4.5); Alkaline Phosphatase 121 U/L (40-110); Anion Gap 11 mmol/L (10-20); BUN (Urea Nitrogen) 13 mg/dL (8.9-20.6); Bilirubin, Total 0.3 mg/dL (0.3-1.2); Calc. Creatinine Clearance 0 mL/min (70-130); Calcium 8.6 mg/dL (7.8-10.44); Carbon Dioxide 23 mmol/L (22-29); Chloride 108 mmol/L (98-107); Globulin 4.4 g/dL (2.4-3.5); Glucose 84 mg/dL (70-105); Potassium 4.2 mmol/L (3.5-5.1); Sodium 138 mmol/L (136-145)
[2024-11-07 05:53] VITALS: BMI 15.0
[2024-11-07] MEDS: Baclofen 10 MG TAB PO SCH (09:47)
[2024-11-07] MEDS: Enoxaparin 40 MG (0.4 mL) SYRINGE SC SCH (09:52)
[2024-11-07] MEDS: oxyCODONE 5 MG TAB PO SCH (12:56)
[2024-11-07] MEDS: oxyCODONE 5 MG TAB PO PRN (22:16)
[2024-11-08 05:31] LABS: #Basophils Less than 0.03 10x3/uL (0.0-0.2); #Eosinophils 0.16 10x3/uL (0.0-0.7); #Monocytes 0.29 10x3/uL (0.11-0.59); #Neutrophils 2.38 10x3/uL (1.40-6.50); %Basophils 0.3 % (0.0-1.0); %Eosinophils 4.2 % (0.0-10.0); %Lymphocytes 25.2 % (21.0-51.0); %Monocytes 7.6 % (0.0-10.0); %Neutrophils 62.4 % (42.0-75.0); Hematocrit 43.8 % (42.0-52.0); Hemoglobin 14.3 g/dL (14.0-18.0); Mean Corpuscular Hemoglobin 29.6 pg (27.0-31.0); Mean Corpuscular Volume 90.7 fL (78.0-98.0); Platelet Count 160 10x3/uL (130-400); Red Blood Cell (RBC) Count 4.83 mill/uL (4.70-6.10); White Blood Cell (WBC) Count 3.81 10x3/uL (4.8-10.8)
[2024-11-08 05:47] LABS: Anion Gap 16 mmol/L (10-20); BUN (Urea Nitrogen) 14 mg/dL (8.9-20.6); Calc. Creatinine Clearance 104 mL/min (70-130); Calcium 9.0 mg/dL (7.8-10.44); Carbon Dioxide 23 mmol/L (22-29); Chloride 105 mmol/L (98-107); Glucose 66 mg/dL (70-105); Potassium 4.5 mmol/L (3.5-5.1); Sodium 139 mmol/L (136-145)
[2024-11-08] MEDS ORDERED: Lidocaine 1% PF 5 ML VIAL ONE (07:26)
[2024-11-08] MEDS ORDERED: Ondansetron PF 4 MG/2 ML Vial ONE (07:26)
[2024-11-08] MEDS ORDERED: PROPOFOL 20 ML ONE (07:26)
[2024-11-08] MEDS: Enoxaparin 30 MG (0.3 mL) SYRINGE SC SCH (07:33)
[2024-11-08] MEDS ORDERED: Glycopyrrolate 0.2 MG/ML 5 ML SYRINGE ONE (07:43)
[2024-11-08 10:22] VITALS: BMI 15.0
[2024-11-08] MEDS: oxyCODONE 5 MG TAB PO PRN (16:21)
[2024-11-09 05:59] LABS: #Basophils Less than 0.03 10x3/uL (0.0-0.2); #Eosinophils 0.06 10x3/uL (0.0-0.7); #Monocytes 0.36 10x3/uL (0.11-0.59); #Neutrophils 5.31 10x3/uL (1.40-6.50); %Basophils 0.1 % (0.0-1.0); %Eosinophils 0.9 % (0.0-10.0); %Lymphocytes 14.5 % (21.0-51.0); %Monocytes 5.3 % (0.0-10.0); %Neutrophils 78.8 % (42.0-75.0); Hematocrit 42.2 % (42.0-52.0); Hemoglobin 13.3 g/dL (14.0-18.0); Mean Corpuscular Hemoglobin 29.1 pg (27.0-31.0); Mean Corpuscular Volume 92.3 fL (78.0-98.0); Platelet Count 192 10x3/uL (130-400); Red Blood Cell (RBC) Count 4.57 mill/uL (4.70-6.10); White Blood Cell (WBC) Count 6.75 10x3/uL (4.8-10.8)
[2024-11-09 06:17] LABS: Anion Gap 19 mmol/L (10-20); BUN (Urea Nitrogen) 13 mg/dL (8.9-20.6); Calc. Creatinine Clearance 102 mL/min (70-130); Calcium 8.9 mg/dL (7.8-10.44); Carbon Dioxide 19 mmol/L (22-29); Chloride 102 mmol/L (98-107); Glucose 59 mg/dL (70-105); Potassium 4.6 mmol/L (3.5-5.1); Sodium 135 mmol/L (136-145)
[2024-11-10 05:54] LABS: #Basophils Less than 0.03 10x3/uL (0.0-0.2); #Eosinophils 0.13 10x3/uL (0.0-0.7); #Monocytes 0.52 10x3/uL (0.11-0.59); #Neutrophils 4.46 10x3/uL (1.40-6.50); %Basophils 0.3 % (0.0-1.0); %Eosinophils 2.0 % (0.0-10.0); %Lymphocytes 21.3 % (21.0-51.0); %Monocytes 8.0 % (0.0-10.0); %Neutrophils 68.1 % (42.0-75.0); Hematocrit 41.9 % (42.0-52.0); Hemoglobin 14.1 g/dL (14.0-18.0); Mean Corpuscular Hemoglobin 29.7 pg (27.0-31.0); Mean Corpuscular Volume 88.2 fL (78.0-98.0); Platelet Count 192 10x3/uL (130-400); Red Blood Cell (RBC) Count 4.75 mill/uL (4.70-6.10); White Blood Cell (WBC) Count 6.54 10x3/uL (4.8-10.8)
[2024-11-10 06:18] LABS: Anion Gap 18 mmol/L (10-20); BUN (Urea Nitrogen) 13 mg/dL (8.9-20.6); CK (CPK) 37 U/L (30-200); Calc. Creatinine Clearance 116 mL/min (70-130); Calcium 9.6 mg/dL (7.8-10.44); Carbon Dioxide 22 mmol/L (22-29); Chloride 101 mmol/L (98-107); Glucose 70 mg/dL (70-105); Potassium 4.5 mmol/L (3.5-5.1); Sodium 136 mmol/L (136-145)
[2024-11-10] MEDS ORDERED: Sodium Bicarbonate 2.5 MEQ/5 ML SDV ONE (08:49)
[2024-11-10] MEDS ORDERED: Lidocaine 1% PF 5 ML VIAL ONE (08:49)
[2024-11-10] MEDS ORDERED: Lidocaine 1% w/Epinephrine 1:100K 20 ML VIAL ONE (10:22)
[2024-11-10] MEDS: Mupirocin 1 GM TUBE NASAL DECOLONIZATION NASAL SCH (23:05)
[2024-11-11] MEDS: Acetaminophen 500 MG TAB PO PRN (03:41)
[2024-11-11 05:55] LABS: #Basophils Less than 0.03 10x3/uL (0.0-0.2); #Eosinophils 0.09 10x3/uL (0.0-0.7); #Monocytes 0.57 10x3/uL (0.11-0.59); #Neutrophils 3.54 10x3/uL (1.40-6.50); %Basophils 0.3 % (0.0-1.0); %Eosinophils 1.5 % (0.0-10.0); %Lymphocytes 27.6 % (21.0-51.0); %Monocytes 9.7 % (0.0-10.0); %Neutrophils 60.6 % (42.0-75.0); Hematocrit 39.5 % (42.0-52.0); Hemoglobin 12.9 g/dL (14.0-18.0); Mean Corpuscular Hemoglobin 29.1 pg (27.0-31.0); Mean Corpuscular Volume 89.2 fL (78.0-98.0); Platelet Count 156 10x3/uL (130-400); Red Blood Cell (RBC) Count 4.43 mill/uL (4.70-6.10); White Blood Cell (WBC) Count 5.86 10x3/uL (4.8-10.8)
[2024-11-11 06:03] LABS: Anion Gap 19 mmol/L (10-20); BUN (Urea Nitrogen) 14 mg/dL (8.9-20.6); Calc. Creatinine Clearance 104 mL/min (70-130); Calcium 9.1 mg/dL (7.8-10.44); Carbon Dioxide 23 mmol/L (22-29); Chloride 98 mmol/L (98-107); Glucose 63 mg/dL (70-105); Potassium 4.3 mmol/L (3.5-5.1); Sodium 136 mmol/L (136-145)
[2024-11-11] MEDS: Mirtazapine 15 MG TAB PO SCH (21:13)
[2024-11-12 03:44] VITALS: TEMP 97.9
[2024-11-12 04:53] LABS: Anion Gap 18 mmol/L (10-20); BUN (Urea Nitrogen) 16 mg/dL (8.9-20.6); Calc. Creatinine Clearance 99 mL/min (70-130); Calcium 9.1 mg/dL (7.8-10.44); Carbon Dioxide 26 mmol/L (22-29); Chloride 97 mmol/L (98-107); Glucose 69 mg/dL (70-105); Potassium 4.2 mmol/L (3.5-5.1); Sodium 137 mmol/L (136-145)
[2024-11-12 05:37] LABS: #Basophils Less than 0.03 10x3/uL (0.0-0.2); #Eosinophils 0.10 10x3/uL (0.0-0.7); #Monocytes 0.61 10x3/uL (0.11-0.59); #Neutrophils 4.47 10x3/uL (1.40-6.50); %Basophils 0.2 % (0.0-1.0); %Eosinophils 1.5 % (0.0-10.0); %Lymphocytes 19.7 % (21.0-51.0); %Monocytes 9.4 % (0.0-10.0); %Neutrophils 68.6 % (42.0-75.0); Hematocrit 38.7 % (42.0-52.0); Hemoglobin 12.7 g/dL (14.0-18.0); Mean Corpuscular Hemoglobin 29.6 pg (27.0-31.0); Mean Corpuscular Volume 90.2 fL (78.0-98.0); Platelet Count 138 10x3/uL (130-400); Red Blood Cell (RBC) Count 4.29 mill/uL (4.70-6.10); White Blood Cell (WBC) Count 6.51 10x3/uL (4.8-10.8)
[2024-11-12] MEDS: Multivit, Therapeutic 1 TAB PO SCH (09:50)
[2024-11-12 12:15] VITALS: BP 103/70
== END 2024-11-12 11:55 | disposition home or self-care (01) | DRG 500 ==
LOC: SURG A 21:19
PROVIDERS: ADMIT Internal Medicine; ATTEND Hospitalist
PROC: 0PBL0ZZ Excision of Left Ulna, Open Approach (ICD-10-PCS; principal; 2024-11-08)
PROC: 0MB40ZZ Excision of Left Elbow Bursa and Ligament, Open Approach (ICD-10-PCS; 2024-11-08)
PROC: 0R9M0ZZ Drainage of Left Elbow Joint, Open Approach (ICD-10-PCS; 2024-11-08)
PROC: 02HV33Z Insertion of Infusion Device into Superior Vena Cava, Percutaneous Approach (ICD-10-PCS; 2024-11-10)
PROC: 3E03329 Introduction of Other Anti-infective into Peripheral Vein, Percutaneous Approach (ICD-10-PCS; 2024-11-10)
DX: S52.022A Displaced fracture of olecranon process without intraarticular extension of left ulna, initial encounter for closed fracture (principal); E43 Unspecified severe protein-calorie malnutrition; G82.20 Paraplegia, unspecified; M00.9 Pyogenic arthritis, unspecified; Z68.1 Body mass index [BMI] 19.9 or less, adult; D64.9 Anemia, unspecified; Z93.3 Colostomy status; Z88.5 Allergy status to narcotic agent; Z88.8 Allergy status to other drugs, medicaments and biological substances; Z79.899 Other long term (current) drug therapy; Z88.1 Allergy status to other antibiotic agents; Z91.018 Allergy to other foods; Z79.891 Long term (current) use of opiate analgesic; Z79.2 Long term (current) use of antibiotics
CPT/HCPCS: 11044; 36415; 36416; 36573; 80048; 80053; 82550; 83605; 84145; 85025; 86141; 87040; 87070; 87077; 87081; 87186; 87205; 96365; 96375; 97139; 99213; C1751; G0463; J0665; J0692; J0878; J1171; J1650; J2185; J2704; J7120